=== PATIENT | male | born 1965 | race Caucasian/White ===

== ENCOUNTER 2016-06-12 09:14 | Day surgery (SDC) | payer BC ==
[~2016-06-12 09:14] MED LIST: LACTATED RINGERS 1,000 ML IV SCH
[2016-06-12 10:07] VITALS: TEMP 98.1
[2016-06-12] MEDS ORDERED: LIDOCAINE 1% 20 ML VIAL (10MG/ML) FOR IV START INTRADERMA ONE (10:10)
[2016-06-12] MEDS ORDERED: LACTATED RINGERS 1,000 ML IV ONE (10:10)
[2016-06-12] MEDS ORDERED: PROPOFOL 10 MG/ML 20 ML VIAL IV ONE (10:16)
[2016-06-12] MEDS ORDERED: fentaNYL (PF) 50 MCG/ML 2 ML AMP ONE (10:16)
[2016-06-12] MEDS ORDERED: MIDAZOLAM 2 MG/2 ML VIAL ONE (10:16)
--- NOTE | 2016-06-12 10:42 | P.PCN ---
Date of Procedure: 06/12/16 Procedure(s) Performed: Procedure: Colonoscopy and biopsy and polypectomy. Preoperative diagnosis: Screening for neoplasia. Postoperative diagnosis: 1. Sigmoid diverticulosis with no evidence of acute diverticulitis or strictures. 2. Small/diminutive polyps around the splenic flexure and in the rectum, one was biopsied and the other was snared, but no large polyps or cancer. Preparation: HalfLytely prep. Sedation: Was provided by anesthesia. Brief clinical history: The patient is a 50-year-old male referred for this evaluation for screening for neoplasia age being his risk factor. He has no abdominal complaints, bleeding or anemia. No family history of colon cancer. This would be his first colonoscopy. Procedure: With the patient on his left lateral decubitus position and after informed consent and adequate sedation, the perianal area was inspected and it did not show any fissures or fistulas. There were no masses felt on digital rectal examination. The Olympus CFQ 160L video colonoscope was then inserted in the rectum in the usual fashion and advanced to the cecum. There was a diminutive polyp around the splenic flexure which I biopsied and there was a small polyp in the rectum close to the rectosigmoid junction which I snared and retrieved by suction, but there were no large polyps or cancer. There was an occasional diverticular orifice seen in the sigmoid with no evidence of acute diverticulitis or strictures. I retroflexed endoscope in the rectum before the endoscope was withdrawn. The patient tolerated the procedure well. Plan: The patient was reassured. Discussed dietary measures. He will follow up with you as planned and I recommended a repeat exam in 5 years.
[2016-06-12 10:50] VITALS: PULSE 92; RESP 18
[2016-06-12 10:51] VITALS: BP 138/99
== END 2016-06-12 11:18 | disposition home or self-care (01) ==
LOC: ORWHC2ENDO 09:14
DX: Z12.11 Encounter for screening for malignant neoplasm of colon (principal); D12.3 Benign neoplasm of transverse colon; K62.1 Rectal polyp; K57.30 Diverticulosis of large intestine without perforation or abscess without bleeding; K21.9 Gastro-esophageal reflux disease without esophagitis; Z79.899 Other long term (current) drug therapy
CPT/HCPCS: 88305; 45380; 45385; J2250; J3010; J2704; 99153

== ENCOUNTER 2017-10-20 01:28 | Inpatient (IN) | payer BC ==
--- NOTE | 2017-10-20 01:39 | ED ---
Chest Pain HPI - General Chief Complaint: Chest Pain Stated Complaint: chest pain Time Seen by Provider: 10/20/17 01:33 Source: patient, family Mode of arrival: ambulatory Limitations: no limitations - History of Present Illness Initial Comments: This patient is a 52-year-old man who presents with complaint of substernal chest pain that woke him from sleep. Patient states that the pain is constant, severe, aching. It does radiate up towards his neck. The patient has not noted worsening or relieving symptoms. He is having associated nausea. MD Complaint: chest pain Onset/Timin -: minutes(s) Onset: awoke with symptoms Pain Location: substernal Pain Radiation: back Severity: severe Quality: dull Consistency: constant Improves With: nothing Worsens With: nothing Anginal Symptoms: nausea Treatments Prior to Arrival: none - Related Data Home Medications Medication Instructions Recorded Confirmed Cholecalciferol [Vitamin D3] 5,000 unit PO DAILY 10/20/17 10/20/17 Allergies Allergy/AdvReac Type Severity Reaction Status Date / Time No Known Allergies Allergy Verified 10/20/17 08:37 Review of Systems ROS Statement: Those systems with pertinent positive or pertinent negative responses have been documented in the HPI. ROS Other: All systems not noted in ROS Statement are negative. Constitutional: Denies: fever, chills Respiratory: Denies: cough, dyspnea Cardiovascular: Reports: chest pain. Denies: palpitations, orthopnea, edema, syncope Gastrointestinal: Reports: nausea. Denies: abdominal pain, vomiting, diarrhea Genitourinary: Denies: dysuria, hematuria Musculoskeletal: Denies: back pain Skin: Denies: rash Neurological: Denies: headache EKG Findings - EKG Results: EKG: interpreted by MOISES, sinus rhythm (Rate 87 bpm), normal axis, normal QRS - Blocks, [place], Hypertrophy, ST Abn: Repolarization changes or abnormalities: nonspecific abnormality, ST segment, and/or T wave Past Medical History Past Medical History: GERD/Reflux History of Any Multi-Drug Resistant Organisms: None Reported Past Surgical History: Hernia Repair, Orthopedic Surgery Additional Past Surgical History / Comment(s): ORIF LEFT MID FINGER. MANDIBULAR RECONSTRUCTION. Past Anesthesia/Blood Transfusion Reactions: Motion Sickness Past Psychological History: No Psychological Hx Reported Smoking Status: Never smoker Past Alcohol Use History: Occasional Past Drug Use History: Marijuana - Past Family History Father Family Medical History: Coronary Artery Disease (CAD), Myocardial Infarction ([place] ) General Exam Limitations: no limitations General appearance: alert, in distress Head exam: Present: atraumatic, normocephalic Eye exam: Present: normal appearance. Absent: scleral icterus, conjunctival injection ENT exam: Present: normal oropharynx Respiratory exam: Present: normal lung sounds bilaterally. Absent: respiratory distress, wheezes, rales, rhonchi, stridor, chest wall tenderness Cardiovascular Exam: Present: regular rate, normal rhythm, normal heart sounds. Absent: systolic murmur, diastolic murmur, rubs, gallop GI/Abdominal exam: Present: soft. Absent: distended, tenderness, guarding, rebound, rigid, mass Extremities exam: Present: normal inspection, normal capillary refill. Absent: pedal edema, calf tenderness Back exam: Present: normal inspection. Absent: CVA tenderness (R), CVA tenderness (L) Neurological exam: Present: alert Skin exam: Present: warm, dry, intact, normal color. Absent: rash Course Vital Signs 10/20/17 10/20/17 10/20/17 01:29 02:10 02:15 Temperature 98 F Pulse Rate 95 100 106 H Respiratory 20 20 20 Rate Blood Pressure 141/94 170/116 155/98 O2 Sat by Pulse 98 99 95 Oximetry 10/20/17 10/20/17 10/20/17 02:20 02:34 02:36 Temperature Pulse Rate 86 84 Respiratory 20 18 Rate Blood Pressure 89/58 85/59 104/77 O2 Sat by Pulse 98 94 L Oximetry 10/20/17 10/20/17 10/20/17 02:58 03:06 03:20 Temperature 98.0 F Pulse Rate 91 82 95 Respiratory 18 18 18 Rate Blood Pressure 143/93 136/96 129/98 O2 Sat by Pulse 96 97 98 Oximetry 10/20/17 10/20/17 10/20/17 03:25 03:32 03:42 Temperature Pulse Rate 93 98 96 Respiratory 18 18 18 Rate Blood Pressure 133/90 133/50 135/83 O2 Sat by Pulse 96 97 97 Oximetry - Reevaluation(s) Reevaluation #1: 10/20/17 02:51 Patient's chest pain continued, and the repeat ECG does show changes concerning for acute coronary syndrome. There is some ST elevation now in lead III. this is less than 1 mm and there is no not another contiguous lead. Clinically, the patient has had some improvement. He states there is no longer any pain in the chest, though he does continue to have the discomfort that radiates to the neck. I have discussed the patient's case with Dr. Mujica, the pattern setter on-call. Patient being started on heparin and nitroglycerin IV. 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 Critical Care Time Critical Care Time: Yes (40 minutes) Disposition Clinical Impression: Acute coronary syndrome Disposition: ADMITTED IP TO THIS HOSP Condition: Serious
[2017-10-20] MEDS ORDERED: ASPIRIN 81 MG PO STA (02:03)
[2017-10-20] MEDS ORDERED: MORPHINE SULFATE 4 MG/ML SYRINGE IV STA (02:03)
[2017-10-20] MEDS ORDERED: ONDANSETRON 4 MG/2 ML VIAL IVP STA (02:08)
[2017-10-20] MEDS: NITROGLYCERIN SL TABS 0.4 MG TAB SUBLINGUAL STA ×2 (02:11→02:16)
[2017-10-20 02:13] LABS: Basophils % (A) 0 %; Eosinophils # (A) 0.2 k/uL (0-0.7); Eosinophils % (A) 2 %; HCT 44.1 % (39.0-53.0); HGB 15.2 gm/dL (13.0-17.5); Lymphocytes # (A) 3.2 k/uL (1.0-4.8); Lymphocytes % (A) 37 %; MCH 28.2 pg (25.0-35.0); MCHC 34.6 g/dL (31.0-37.0); MCV 81.7 fL (80.0-100.0); Monocytes # (A) 0.8 k/uL (0-1.0); Monocytes % (A) 9 %; Neutrophils # (A) 4.2 k/uL (1.3-7.7); Neutrophils % (A) 48 %; Platelet Count 276 k/uL (150-450); RDW 13.4 % (11.5-15.5); WBC 8.7 k/uL (3.8-10.6)
[2017-10-20 02:22] LABS: Albumin 4.1 g/dL (3.5-5.0); Calcium 9.1 mg/dL (8.4-10.2); Magnesium 2.1 mg/dL (1.6-2.3); Potassium 3.9 mmol/L (3.5-5.1); Total Bilirubin 0.4 mg/dL (0.2-1.3); Total Protein 7.1 g/dL (6.3-8.2)
[2017-10-20 02:33] LABS: D-Dimer 0.43 mg/L FEU (<0.60); Prothrombin Time 9.7 sec (9.0-12.0)
[2017-10-20] MEDS ORDERED: SODIUM CHLORIDE 0.9% 1,000 ML IV ONE ×3 (02:33→04:11)
[2017-10-20] MEDS ORDERED: HEPARIN SODIUM,PORCINE 5,000 UNIT/ML 1 ML VIAL IV ONE (02:39)
[2017-10-20] MEDS ORDERED: HEPARIN SODIUM,PORCINE 5,000 UNIT/ML 1 ML VIAL IV PRN (02:39)
--- NOTE | 2017-10-20 02:40 | XR ---
EXAMINATION TYPE: XR chest 1V portable DATE OF EXAM: 10/20/2017 COMPARISON: NONE HISTORY: Chest pain TECHNIQUE: Single frontal view of the chest is obtained. FINDINGS: There is no heart failure nor confluent pneumonic infiltrate. Costophrenic angles are gilda r. There are chest leads. Bony thorax is intact. IMPRESSION: Normal chest
[2017-10-20 02:42] LABS: Creatine Kinase MB 3.3 ng/mL (0.0-2.4); Troponin I 0.378 ng/mL (0.000-0.034)
[2017-10-20 02:43] LABS: Partial Thromboplastin Time 21.1 sec (22.0-30.0)
[2017-10-20] MEDS ORDERED: HEPARIN SOD,PORK IN 0.45% NACL 25,000 UNIT in 0.45% NACL 1 500ML.BAG IV SCH (02:45)
[2017-10-20] MEDS ORDERED: NITROGLYCERIN SL TABS 0.4 MG TAB SUBLINGUAL PRN ×2 (02:54→05:03)
[2017-10-20] MEDS ORDERED: NITROGLYCERIN-D5W PMX 50 MG in DEXTROSE/WATER 1 250ML.BAG IV ONE (02:58)
[2017-10-20] MEDS ORDERED: DEXTROSE IV SCH (02:59)
[2017-10-20] MEDS ORDERED: HEPARIN SOD PORK IV SCH (02:59)
[2017-10-20] MEDS ORDERED: WATER IV SCH (02:59)
[2017-10-20] MEDS ORDERED: NACL IV SCH (02:59)
[2017-10-20] MEDS ORDERED: HEPARIN SODIUM,PORCINE/D5W PMX 25,000 UNIT in DEXTROSE/WATER 1 500ML.BAG IV SCH (03:00)
[2017-10-20] MEDS ORDERED: ATORVASTATIN 80 MG TAB PO STA (03:27)
[2017-10-20] MEDS ORDERED: MIDAZOLAM 2 MG/2 ML VIAL ONE (04:09)
[2017-10-20] MEDS ORDERED: fentaNYL (PF) 50 MCG/ML 2 ML AMP ONE (04:09)
[2017-10-20] MEDS ORDERED: LIDOCAINE 2% INJ 20 MG/ML SQ ONE ×2 (04:12→04:13)
[2017-10-20] MEDS ORDERED: MIDAZOLAM 2 MG/2 ML VIAL IVP ONE (04:14)
[2017-10-20] MEDS: fentaNYL (PF) 50 MCG/ML 2 ML AMP IVP ONE ×2 (04:14→04:33)
[2017-10-20] MEDS ORDERED: BIVALIRUDIN BOLUS 250 MG/50 ML IV ONE (04:23)
[2017-10-20] MEDS ORDERED: BIVALIRUDIN 250 MG in SODIUM CHLORIDE 0.9% 50 ML IV ONE (04:24)
[2017-10-20] MEDS ORDERED: CLOPIDOGREL 75 MG TAB PO ONE (04:25)
[2017-10-20] MEDS ORDERED: CLOPIDOGREL 75 MG TAB ONE ×2 (04:25)
[2017-10-20] MEDS: NITROGLYCERIN 1000MCG/10ML SYRINGE INTRACORON ONE ×2 (04:31→04:38)
[2017-10-20] MEDS ORDERED: niCARdipine 25 MG/10 ML VIAL ONE (04:36)
[2017-10-20] MEDS ORDERED: niCARdipine Syringe (1,000 mcg/10 mL) INTRACORON ONE (04:38)
[2017-10-20] MEDS ORDERED: IOPAMIDOL-370 125ML BTL INJ ONE (04:41)
--- NOTE | 2017-10-20 05:01 | P.CRDCN ---
History of Present Illness Consult date: 10/20/17 Chief complaint: chest discomfort History of present illness: this is a pleasant 52-year-old gentleman who presented to the emergency room complaining of chest discomfort. He was in his usual state of health and was completely asymptomatic until last night when he woke up from sleep around 1:00 after midnight complaining of chest discomfort. The discomfort is substernal, as a tightness/pressure on the chest, and it was radiating to his neck as well as to his jaw. The initial EKG when he presented to the hospital showed sinus rhythm with ischemic changes inferiorly. Because of the ongoing chest discomfort the patient was brought to the cardiac laborer general. He underwent an emergent heart catheterization and that revealed mild disease involving the RCA , normal left main, totally and acutely occluded large first obtuse marginal branch of the left circumflex, and mild disease involving the LAD. The patient underwent successful stenting of the first obtuse marginal branch of the left circumflex with a good angiographic results and using a drug-eluting stent. By the end of the procedure the patient was completely pain-free. In terms of past medical history he does have high blood pressure. He stated that his pressure fluctuates at home but he is not on any blood pressure medications.he states that there is no dyslipidemia and no diabetes. The patient does not smoke and does not drink alcohol. Past Medical History Past Medical History: GERD/Reflux History of Any Multi-Drug Resistant Organisms: None Reported Past Surgical History: Hernia Repair, Orthopedic Surgery Additional Past Surgical History / Comment(s): ORIF LEFT MID FINGER. MANDIBULAR RECONSTRUCTION. Past Anesthesia/Blood Transfusion Reactions: Motion Sickness Past Psychological History: No Psychological Hx Reported Smoking Status: Never smoker Past Alcohol Use History: Occasional Past Drug Use History: Marijuana Medications and Allergies Home Medications Medication Instructions Recorded Confirmed Type No Known Home Medications [No 10/20/17 10/20/17 History Known Home Medications] Allergies Allergy/AdvReac Type Severity Reaction Status Date / Time No Known Allergies Allergy Verified 10/20/17 01:32 Physical Exam Vitals: Vital Signs Temp Pulse Resp BP Pulse Ox 10/20/17 03:42 96 18 135/83 97 10/20/17 03:32 98 18 133/50 97 10/20/17 03:25 93 18 133/90 96 10/20/17 03:20 98.0 F 95 18 129/98 98 10/20/17 03:06 82 18 136/96 97 10/20/17 02:58 91 18 143/93 96 10/20/17 02:36 84 18 104/77 94 L 10/20/17 02:34 85/59 10/20/17 02:20 86 20 89/58 98 10/20/17 02:15 106 H 20 155/98 95 10/20/17 02:10 100 20 170/116 99 10/20/17 01:29 98 F 95 20 141/94 98 Intake and Output 10/19/17 10/19/17 10/20/17 14:59 22:59 06:59 Intake Total 501.1 Balance 501.1 Intake: IV 500 Intake, IV Titration 1.1 Amount Nitroglycerin-D5w Pmx 50 1.1 mg In Dextrose/Water 1 250ml.bag @ 5 MCG/MIN 1.5 mls/hr IV .Q24H ONE Rx#: [id number] Other: Weight 86.183 kg - Constitutional General appearance: no acute distress - Respiratory Respiratory: bilateral: CTA - Cardiovascular Rhythm: regular Heart sounds: normal: S1, S2 Results 10/20/17 01:39 10/20/17 01:39 Cardiac Enzymes 10/20/17 10/20/17 Range/Units 01:39 01:39 AST 31 (17-59) U/L CK-MB (CK-2) 3.3 H* (0.0-2.4) ng/mL Troponin I 0.378 H* (0.000-0.034) ng/mL Coagulation 10/20/17 Range/Units 01:39 PT 9.7 (9.0-12.0) sec APTT 21.1 L (22.0-30.0) sec CBC 10/20/17 Range/Units 01:39 WBC 8.7 (3.8-10.6) k/uL RBC 5.40 (4.30-5.90) m/uL Hgb 15.2 (13.0-17.5) gm/dL Hct 44.1 (39.0-53.0) % Plt Count 276 (150-450) k/uL Comprehensive Metabolic Panel 10/20/17 Range/Units 01:39 Sodium 141 (137-145) mmol/L Potassium 3.9 (3.5-5.1) mmol/L Chloride 102 (98-107) mmol/L Carbon Dioxide 24 (22-30) mmol/L BUN 17 (9-20) mg/dL Creatinine 1.10 (0.66-1.25) mg/dL Glucose 107 H (74-99) mg/dL Calcium 9.1 (8.4-10.2) mg/dL AST 31 (17-59) U/L ALT 54 (21-72) U/L Alkaline Phosphatase 66 (38-126) U/L Total Protein 7.1 (6.3-8.2) g/dL Albumin 4.1 (3.5-5.0) g/dL Current Medications Generic Name Dose Route Start Last Admin Trade Name Freq PRN Reason Stop Dose Admin Aspirin 325 mg 10/21/17 09:00 Aspirin PO DAILY ELIANA Heparin Sodium (Porcine) 0 unit 10/20/17 02:39 Heparin IV PER PROTOCOL PRN Low PTT Protocol Nitroglycerin/Dextrose 50 mg/ 250 mls @ 1.5 mls/hr 10/20/17 02:58 10/20/17 03 :42 IV Solution IV 10/21/17 02:57 15 mcg/min .Q24H ONE 4.5 mls/hr Protocol Titration 5 MCG/MIN Heparin Sodium/Dextrose 25,000 500 mls @ 20.68 mls/hr 10/20/17 03:00 03:28 unit/ IV Solution IV 11.6 units/kg/hr .Q24H ELIANA 20 mls/hr Protocol Administration 12 UNITS/KG/HR Nitroglycerin 0.4 mg 10/20/17 02:54 Nitrostat SUBLINGUAL Q5M PRN Chest Pain Intake and Output 10/19/17 10/19/17 10/20/17 14:59 22:59 06:59 Intake Total 501.1 Balance 501.1 Intake: IV 500 Intake, IV Titration 1.1 Amount Nitroglycerin-D5w Pmx 50 1.1 mg In Dextrose/Water 1 250ml.bag @ 5 MCG/MIN 1.5 mls/hr IV .Q24H ONE Rx#: [id number] Other: Weight 86.183 kg Patient Weight 10/20/17 06:59 Weight 86.183 kg 10/20/17 01:39 10/20/17 01:39 Assessment and Plan Assessment: assessment #1 acute coronary syndrome. The patient is status post PCI of the left circumflex. #2 mild nonobstructive coronary artery disease involving the RCA and LAD #3 hypertension not on any medication at home Plan #1 dual antiplatelet therapy #2 high intensity statin #3 obtain an echocardiogram was Doppler to evaluate the LV function #4 follow-up with the patient. Thank you for allowing us participate in his care and we will continue following up with him
[2017-10-20] MEDS ORDERED: ATROPINE SULFATE 0.1 MG/ML 10ML SYRINGE IV PRN (05:03)
[2017-10-20] MEDS ORDERED: RX INFO: IV CONTRAST WAS GIVEN 1 EACH MISC MISCELLANE PRN (05:03)
[2017-10-20] MEDS ORDERED: MAG HYDROX/AL HYDROX/SIMETH 30 ML CUP PO PRN (05:03)
[2017-10-20] MEDS ORDERED: ZOLPIDEM 5 MG TAB PO PRN (05:03)
[2017-10-20] MEDS ORDERED: SODIUM CHLORIDE 0.9% 1,000 ML IV SCH (05:15)
[2017-10-20 05:18] LABS: Glucose,Whole Blood 141 mg/dL (75-99)
[2017-10-20 06:51] VITALS: BMI 26.4
--- NOTE | 2017-10-20 07:55 | CC ---
CARDIAC CATHETERIZATION REPORT DATE OF SERVICE: October 20, 2017 PERFORMING PHYSICIAN: Darwin Mujica MD, linoleum floor layer. PROCEDURE PERFORMED: 1. Selective right and left coronary angiogram. 2. Left heart catheterization. 3. Successful stenting of the first obtuse marginal branch of left circumflex using 2.75 x 28 mm Xience BRIGIDA with good angiographic results. INDICATION: This is a pleasant 52-year-old gentleman who presented to the hospital with chest discomfort and mildly abnormal troponin. He continues to have ongoing chest discomfort as well as throat and jaw discomfort. Because of that an emergent heart catheterization was recommended. APPROACH: Right common femoral artery. COMPLICATION: None. LEVEL OF SEDATION: Moderate with sedation length of 35 minutes. PROCEDURE DESCRIPTION: After obtaining an informed consent, the patient was brought to cardiac laboratory chief. The right common femoral artery was cannulated using micropuncture technique and a micropuncture wire passed easily then I placed a 6-Niuean sheath in the right common femoral artery. Subsequently I did selective right and left coronary angiogram using JR4 and JL4 catheters. After that, I did perform angioplasty of the left circumflex please see a separate paragraph for that. Left heart catheterization was performed using 6-Niuean pigtail catheter. The procedure was completed without any complication. The groin was closed using the Perclose device. SELECTIVE CORONARY ANGIOGRAM: 1. The right coronary artery is a large caliber vessel and it is a dominant vessel. The RCA has mild disease in the midportion. It is a tortuous RCA. It is a dominant vessel. Distally it also does have mild disease only and bifurcates into PDA and PLV branches, both are angiographically normal. 2. The left main is angiographically normal. It bifurcates into the circumflex and left anterior descending artery. 3. The left circumflex is a large caliber vessel. It is a nondominant vessel. The proximal circ appeared to be angiographically normal. The mid circ gives rise into a large OM branch which is occluded in the proximal portion and the circ continued after that as a small-caliber vessel in the AV groove. 4. The LAD: The proximal LAD appeared to have mild disease only. It gives rise into the first diagonal branch which is a large caliber vessel with intermediate disease in the ostium. The mid LAD and distal LAD are angiographically normal. HEMODYNAMICS: The left ventricular end-diastolic pressure was 23 mmHg and no gradient was identified across the aortic valve. PCI OF THE LEFT CIRCUMFLEX: Anticoagulation was initiated using Angiomax. Subsequently I did engage the left main using JL4 guiding catheter. A whisper wire was used to cross the acute total occlusion of the first obtuse marginal branch of the left circumflex. Subsequently I did balloon angioplasty using 2.5 x 12 x 15 mm balloon before I deployed 2.75 x 28 mm Xience BRIGIDA where the stent was positioned under fluoroscopy guidance and deployed under its nominal pressure. The following angiogram showed good angiographic results without perforation and without dissection with SARA-3 flow. I did give the patient nitroglycerin IC as well as nicardipine IC. The procedure was completed without any complication. I did close the right groin using the Perclose device. CONCLUSION: 1. Acute total occlusion of the first obtuse marginal branch of the circumflex, which was which was successfully stented with good angiographic results. 2. Mild disease involving the RCA. 3. Mild disease involving the left anterior descending artery. 4. Normal left main coronary artery. 5. Elevated left ventricular end-diastolic pressure. POSTPROCEDURE MANAGEMENT: 1. Dual anti-platelet therapy along with high-intensity statin. 2. An echocardiogram to evaluate the LV function. 3. ICU admission. 4. Follow up with the patient. MMODL / IJN: [id number] /
--- NOTE | 2017-10-20 07:55 | LTR ---
October 20, [address] Cabrera: Mr. Burt Dee presented to the emergency room at [facility] with chest discomfort. He underwent a heart catheterization and was found to have acute total occlusion of the first obtuse marginal branch of the left circumflex, which was stented successfully with good angiographic results. Thank you for allowing us to participate in his care and please do not hesitate to call if you have any questions or concerns. MMODL / IJN: [id number] /
[2017-10-20] MEDS ORDERED: ASPIRIN 325 MG TAB PO SCH (09:00)
[2017-10-20 09:22] LABS: Troponin I 17.9 ng/mL (0.000-0.034)
[2017-10-20] MEDS: METOPROLOL TARTRATE 25 MG TAB PO SCH ×2 (09:58→21:14)
[2017-10-20] MEDS: LISINOPRIL 2.5 MG TAB PO SCH (09:58)
--- NOTE | 2017-10-20 10:47 | P.PN ---
Subjective Progress Note Date: 10/20/17 This is a 52-year-old gentleman with a strong family history of ischemic heart disease and possible mild hypercholesterolemia, who was admitted last night with the with chest pain and evidence of for non-ST elevation myocardial infarction. Patient had stent placement of circumflex. Patient is feeling better. Denies any chest pain or shortness of breath. His groin is soft. His having occasional skipping of the heart beats in the form of PVCs. His troponin and CPK went high, most probably from early reperfusion. Echo cardiogram was done. We'll increase his activity. Possible transfer to telemetry later today Objective - Vital Signs Vital signs: Vital Signs Temp 98.0 F 10/20/17 03:20 Pulse 91 10/20/17 07:00 Resp 18 10/20/17 07:00 BP 107/69 10/20/17 07:00 Pulse Ox 97 10/20/17 07:00 Intake & Output 10/19/17 10/20/17 10/20/17 18:59 06:59 18:59 Intake Total 651.1 100 Output Total 450 Balance 201.1 100 Weight 86 kg Intake: IV 650 100 Sodium Chloride 0.9% 1, 100 100 000 ml @ 100 mls/hr IV . Q10H [facility] Rx#:[id number] Intake, IV Titration 1.1 Amount Nitroglycerin-D5w Pmx 50 1.1 mg In Dextrose/Water 1 250ml.bag @ 5 MCG/MIN 1.5 mls/hr IV .Q24H ONE Rx#: [id number] Output: Urine 450 - Exam GENERAL EXAM: Patient is alert and oriented and doesn't appear to be in any acute distress HEENT: Normocephalic. Normal reaction of pupils, equal size, normal range of extraocular motion. No erythema or exudates in the throat. NECK: No masses, no nuchal rigidity. CHEST: No chest wall deformity. LUNGS: Equal air entry with no crackles or wheeze. HEART: S1 and S2 normal with no audible mumurs or gallops. Regular rhythm, femorals equal on both sides.. ABDOMEN: No hepatosplenomegaly, normal bowel sounds, no guarding or rigidity. SKIN: No rashes CENTRAL NERVOUS SYSTEM: No focal deficits. EXTREMITIES: No cyanosis, clubbing or edema. - Labs CBC & Chem 7: 10/20/17 01:39 10/20/17 01:39 Labs: Abnormal Lab Results - Last 24 Hours (Table) 10/20/17 10/20/17 10/20/17 Range/Units 01:39 01:39 01:39 APTT 21.1 L (22.0-30.0) sec Glucose 107 H (74-99) mg/dL POC Glucose (mg/dL) (75-99) mg/dL Total Creatine Kinase 232 H (55-170) U/L CK-MB (CK-2) 3.3 H* (0.0-2.4) ng/mL Troponin I 0.378 H* (0.000-0.034) ng/mL 10/20/17 10/20/17 Range/Units 05:15 08:26 APTT (22.0-30.0) sec Glucose (74-99) mg/dL POC Glucose (mg/dL) 141 H (75-99) mg/dL Total Creatine Kinase 1226 H (55-170) U/L CK-MB (CK-2) 117.0 H* (0.0-2.4) ng/mL Troponin I 17.900 H* (0.000-0.034) ng/mL Assessment and Plan (1) Hyperlipidemia Current Visit: Yes Status: Acute Code(s): E78.5 - HYPERLIPIDEMIA, UNSPECIFIED SNOMED Code(s): 49954274 (2) Acute coronary syndrome Current Visit: Yes Status: Acute Code(s): I24.9 - ACUTE ISCHEMIC HEART DISEASE, UNSPECIFIED SNOMED Code(s): 614087439 (3) Non-ST elevation [place] (NSTEMI) Current Visit: Yes Status: Acute Code(s): I21.4 - NON-ST ELEVATION (NSTEMI) MYOCARDIAL INFARCTION SNOMED Code(s): 732415412 Plan: Patient is clinically stable. Continue with KESHIA inhibitor, beta naveen, statin and aspirin and Brillinta. Transfer to telemetry
--- NOTE | 2017-10-20 12:23 | ECHOF ---
Referral Reason:ACS MEASUREMENTS -------- HEIGHT: 162.6 cm WEIGHT: 86.2 kg BP: 101/61 IVSd: 1.2 cm (0.6 - 1.1) LVIDd: 3.9 cm (3.9 - 5.3) LVPWd: 1.4 cm (0.6 - 1.1) IVSs: 1.7 cm LVIDs: 3.1 cm LVPWs: 1.4 cm LA Diam: 4.0 cm (2.7 - 3.8) LAESV Index (A-L): 36.51 ml/m Ao Diam: 3.2 cm (2.0 - 3.7) AV Cusp: 1.9 cm (1.5 - 2.6) LA Diam: 4.1 cm (2.7 - 3.8) MV EXCURSION: 17.701 mm (> 18.000) MV EF SLOPE: 66 mm/s (70 - 150) EPSS: 0.3 cm MV E Nasir: 0.66 m/s MV DecT: 157 ms MV A Nasir: 0.54 m/s MV E/A Ratio: 1.24 RAP: 5.00 mmHg RVSP: 16.50 mmHg FINDINGS -------- Sinus rhythm. This was a technically adequate study. The left ventricular size is normal. There is mild concentric left ventricular hypertrophy. Overa ll left ventricular systolic function is low-normal with, an EF between 50 - 55 %. Basal lateral LV wall motion is hypokinetic. Basal inferior LV wall motion is hypokinetic. The right ventricle is normal in size. LA is moderately dilated 34-39 ml/m2 The right atrial size is normal. Aortic valve is trileaflet and is mildly thickened. The mitral valve is normal. Mild mitral regurgitation is present. Mild tricuspid regurgitation present. There is no evidence of pulmonary hypertension. The right v entricular systolic pressure, as measured by Doppler, is 16.50mmHg. There is no pulmonic regurgitation present. The aortic root size is normal. There is no pericardial effusion. CONCLUSIONS -------- 1. Sinus rhythm. 2. This was a technically adequate study. 3. The left ventricular size is normal. 4. There is mild concentric left ventricular hypertrophy. 5. Overall left ventricular systolic function is low-normal with, an EF between 50 - 55 %. 6. Basal lateral LV wall motion is hypokinetic. 7. Basal inferior LV wall motion is hypokinetic. 8. LA is moderately dilated 34-39 ml/m2 9. Aortic valve is trileaflet and is mildly thickened. 10. Mild mitral regurgitation is present. 11. Mild tricuspid regurgitation present. 12. There is no evidence of pulmonary hypertension. 13. There is no pulmonic regurgitation present. 14. The aortic root size is normal. 15. There is no pericardial effusion. BIODIESEL PRODUCTION TECHNICIAN: Vale Bliss RDCS
[2017-10-20 14:37] LABS: Troponin I 44.2 ng/mL (0.000-0.034)
--- NOTE | 2017-10-20 18:37 | HP ---
HISTORY AND PHYSICAL DATE OF SERVICE: October 20, 2017. PRESENTING COMPLAINT: Throat pain. HISTORY OF PRESENTING COMPLAINT: A very pleasant 52-year-old patient of Dr. Cabrera whose chronic stable medical conditions include GERD, insomnia, and obstructive sleep apnea. The patient is rather active and goes to the gym, works on a bike, does weightlifting. It was his birthday yesterday. Went out with friends. About 1 o'clock in the morning, he felt a sore throat and subsequently started having more pain in the throat area and going down the chest and back up. The patient became dizzy. Started feeling nausea, nauseated. MMODL / IJN: [id number] /
[2017-10-20] MEDS: ATORVASTATIN 80 MG TAB PO SCH (21:14)
[2017-10-20] MEDS: FAMOTIDINE 20 MG TAB PO SCH (21:14)
[2017-10-21 04:39] LABS: Basophils % (A) 0 %; Eosinophils # (A) 0.2 k/uL (0-0.7); Eosinophils % (A) 2 %; HCT 42.1 % (39.0-53.0); HGB 13.6 gm/dL (13.0-17.5); Lymphocytes # (A) 2.2 k/uL (1.0-4.8); Lymphocytes % (A) 21 %; MCH 27.1 pg (25.0-35.0); MCHC 32.3 g/dL (31.0-37.0); MCV 83.7 fL (80.0-100.0); Mean Platelet Volume 7.5; Monocytes # (A) 0.9 k/uL (0-1.0); Monocytes % (A) 8 %; Neutrophils % (A) 67 %; Platelet Count 228 k/uL (150-450); RBC 5.02 m/uL (4.30-5.90); RDW 13.3 % (11.5-15.5); WBC 10.5 k/uL (3.8-10.6)
[2017-10-21 05:10] LABS: Anion Gap 8 mmol/L; Blood Urea Nitrogen 14 mg/dL (9-20); Calcium 8.3 mg/dL (8.4-10.2); Carbon Dioxide 26 mmol/L (22-30); Chloride 104 mmol/L (98-107); Cholesterol 173 mg/dL (<200); Glucose 100 mg/dL (74-99); HDL Cholesterol 36 mg/dL (40-60); LDL Cholesterol,Calculated 114 mg/dL (0-99); Magnesium 2.1 mg/dL (1.6-2.3); Phosphorus 2.9 mg/dL (2.5-4.5); Potassium 4.2 mmol/L (3.5-5.1); Sodium 138 mmol/L (137-145); Triglycerides 115 mg/dL (<150)
[2017-10-21] MEDS: ASPIRIN 325 MG TAB PO SCH (11:17)
[2017-10-21] MEDS: FAMOTIDINE 20 MG TAB PO SCH ×2 (11:18→21:06)
[2017-10-21] MEDS: METOPROLOL TARTRATE 25 MG TAB PO SCH ×3 (11:18→21:06)
[2017-10-21] MEDS: LISINOPRIL 2.5 MG TAB PO SCH (11:18)
[2017-10-21] MEDS: CLOPIDOGREL 75 MG TAB PO SCH (11:18)
[2017-10-21] MEDS: ATORVASTATIN 80 MG TAB PO SCH (21:06)
[2017-10-22 06:27] LABS: Basophils % (A) 0 %; Eosinophils # (A) 0.2 k/uL (0-0.7); Eosinophils % (A) 2 %; HCT 43.4 % (39.0-53.0); HGB 14.3 gm/dL (13.0-17.5); Lymphocytes # (A) 2.7 k/uL (1.0-4.8); Lymphocytes % (A) 28 %; MCH 28.1 pg (25.0-35.0); MCV 85.1 fL (80.0-100.0); Mean Platelet Volume 6.8; Monocytes # (A) 0.8 k/uL (0-1.0); Monocytes % (A) 8 %; Neutrophils # (A) 5.7 k/uL (1.3-7.7); Neutrophils % (A) 60 %; Platelet Count 199 k/uL (150-450); RDW 13.8 % (11.5-15.5); WBC 9.6 k/uL (3.8-10.6)
--- NOTE | 2017-10-22 06:33 | PN ---
PROGRESS NOTE DATE OF SERVICE: 10/21/2017 PRESENTING COMPLAINT: Chest pain. INTERVAL HISTORY: Patient is status post acute SD with coronary intervention up and about in the hallway. No chest pain or shortness of breath. Feeling well. REVIEW OF SYSTEMS: Review of systems done for constitutional, cardiovascular, GI, pulmonary; relevant findings as above. CURRENT MEDICATIONS: Current medications are reviewed. PHYSICAL EXAMINATION: On examination, temperature 97.7, pulse 95, respiratory 18, blood pressure 106/76, pulse ox 95% on room air. GENERAL APPEARANCE: Lying in bed, comfortable. EYES: Pupils equal. Conjunctivae normal. HENT: External appearance nose and ears normal. Oral cavity normal. NECK: JVD not raised. Mass not palpable. RESPIRATORY: Effort normal. Lungs are clear. CARDIOVASCULAR: First and second sounds normal. No edema. ABDOMEN: Soft, nontender. Liver and spleen not palpable. PSYCHIATRY: Alert and oriented x3. Mood and affect normal. INVESTIGATIONS: Troponins are noted. ASSESSMENT: 1. Acute non-ST elevation myocardial infarction with emergent stenting to the first obtuse marginal of the left circumflex. 2. Severe gastroesophageal reflux disease. PLAN: Continue current medication and treatment plan. Care was discussed with the patient. MMODL / IJN: [id number] /
[2017-10-22 06:34] LABS: Anion Gap 8 mmol/L; Blood Urea Nitrogen 19 mg/dL (9-20); Calcium 8.4 mg/dL (8.4-10.2); Carbon Dioxide 27 mmol/L (22-30); Chloride 104 mmol/L (98-107); Glucose 94 mg/dL (74-99); Phosphorus 3.2 mg/dL (2.5-4.5); Potassium 4.5 mmol/L (3.5-5.1); Sodium 139 mmol/L (137-145)
--- NOTE | 2017-10-22 06:36 | HP ---
HISTORY AND PHYSICAL DATE OF SERVICE: October 20, 2017 PRESENTING COMPLAINT: Throat pain. HISTORY OF PRESENTING COMPLAINT: This patient was seen by me on October 20, 2017, however, my H and P has not shown up. Hence, I am dictating again. This is a very pleasant 52-year-old patient of Dr. Cabrera whose chronic stable medical conditions include GERD, insomnia, obstructive sleep apnea. The patient is rather active and goes to the gym, works on a bike, does weightlifting. It was his birthday the prior evening, went out with friends. At 1 o'clock in the morning he felt a sore throat and subsequently started having more pain in his throat area going down the chest and back up. The patient became dizzy, starting feeling nausea. This episode continued to grow, felt a more disturbed and decided to come in for the same. The patient echocardiogram done showed wall motion abnormality and patient is taken to the cardiac catheterization lab by Dr. Mujica and patient has successful stenting to the 1st obtuse marginal branch of the left circumflex. I saw the patient in the ICU. Patient is resting comfortably. REVIEW OF SYSTEMS: Constitutional tired. HEENT none. Respiratory none. Cardiovascular as above. Gastrointestinal: Heartburn. Genitourinary none. Musculoskeletal none. Dermatological, hematologic, lymphatic none. Psychiatry none. Neurological none. PAST MEDICAL HISTORY: Of hernia repair and ORIF of the left middle finger. reconstruction. SOCIAL HISTORY: No smoking. Occasional marijuana. 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 . FAMILY HISTORY: Coronary artery disease. HOME MEDICATIONS: Vitamin D 5 5000 units a day. ALLERGIES: None. PHYSICAL EXAMINATION: Vital signs on presentation, temperature 98, pulse 95 respiratory rate 20, blood pressure 140/94, pulse ox 98%. GENERAL APPEARANCE: Average build, lying in bed. Comfortable. Eyes pupils equal. Conjunctivae normal. HEENT external appearance of nose and ears normal. Oral cavity normal. Neck JVD not raised. Mass not palpable. Respiratory effort normal. Lungs are clear. Cardiovascular 1st and 2nd sounds normal. No edema. ABDOMEN: Soft, nontender. Liver and spleen not palpable. Lymphatics: No lymph nodes palpable in neck or axillae. PSYCHIATRY: Alert and oriented x3. Mood and affect normal. INVESTIGATIONS: Admission labs: White count 8.7, hemoglobin 15.2 potassium 3.9 BUN creatinine is normal. Troponin 0.377 and 0.3. EKG admission EKG showed flipped T-waves in inferior leads. ASSESSMENT: 1. Acute non ST elevation myocardial infarction with emergent cardiac catheterization and stenting. 2. Chronic gastroesophageal reflux disease. PLAN: Patient's medications were reviewed. The patient is status post cardiac cath. The patient's medications include aspirin, Lipitor, Plavix. Care was discussed with the patient. The patient was put on Pepcid. The patient is seen by Dr. Mujica from Cardiology. Copy to Dr. Cabrera. VEE / TIMOTHYN: [id number] /
[2017-10-22] MEDS: CLOPIDOGREL 75 MG TAB PO SCH (10:33)
[2017-10-22] MEDS: METOPROLOL TARTRATE 25 MG TAB PO SCH ×3 (10:33→21:50)
[2017-10-22] MEDS: ASPIRIN 325 MG TAB PO SCH (10:33)
[2017-10-22] MEDS: FAMOTIDINE 20 MG TAB PO SCH ×2 (10:33→21:50)
--- NOTE | 2017-10-22 14:41 | P.PN ---
Subjective Progress Note Date: 10/22/17 Is a 52-year-old gentleman who presented to the hospital with a non-ST elevation myocardial infarction, he underwent angioplasty with stent placement of the circumflex. Echocardiogram with Doppler study was reviewed today which revealed a normal left ventricular systolic function. Hemodynamically he is stable. CBC is normal, sodium 139, potassium 4.5, BUN 19, creatinine 0.9. Objective - Vital Signs Vital signs: Vital Signs Temp 97.1 F L 10/22/17 12:00 Pulse 82 10/22/17 12:00 Resp 18 10/22/17 12:00 BP 137/83 10/22/17 12:00 Pulse Ox 96 10/22/17 12:00 Intake & Output 10/21/17 10/22/17 10/22/17 18:59 06:59 18:59 Intake Total 597 240 Output Total 300 Balance 297 240 Weight 88.7 kg Intake: Oral 597 240 Output: Urine 300 Other: Voiding Method Urinal Urinal # Voids 1 1 - Exam PHYSICAL EXAMINATION: HEENT: Head is atraumatic, normocephalic. Pupils equal, round. Neck is supple. There is no elevated jugular venous pressure. HEART EXAMINATION: Heart S1, S2 normal. No murmur or gallop heard. CHEST EXAMINATION: Lungs are clear to auscultation and precussion. No chest wall tenderness is noted on palpation or with deep breathing. ABDOMEN: Soft, nontender. Bowel sounds are heard. No organomegaly noted. EXTREMITIES: 2+ peripheral pulses with no evidence of peripheral edema and no calf tenderness noted. NEUROLOGIC patient is awake, alert and oriented -3. . - Labs CBC & Chem 7: 10/22/17 05:31 10/22/17 05:31 Assessment and Plan Plan: Assessment and plan #1 non-Q-wave myocardial infarction status post angioplasty and stenting of the circumflex artery #2 hyperlipidemia #3 family history of premature coronary artery disease Plan From cardiology's perspective, we will continue the patient's current medications. Plan on possible discharge home in 24 hours if stable. DNP note has been reviewed, I agree with a documented findings and plan of care. Patient was seen and examined.
--- NOTE | 2017-10-22 19:14 | PN ---
PROGRESS NOTE DATE OF SERVICE: 10/22/2017 PRESENTING COMPLAINT: Chest pain. INTERVAL HISTORY: Patient is status post acute GA with coronary intervention, up in part of the hallway, feeling well. No chest pain or short of breath. No nausea, vomiting, tolerating his diet. REVIEW OF SYSTEMS: Done for constitutional, cardiovascular, GI, pulmonary; relevant findings as above. CURRENT MEDICATIONS: Reviewed that include: 1. Aspirin. 2. Lipitor. 3. Plavix. 4. Lopressor. EXAMINATION: Temperature 97.1, pulse 62, respirations 18, blood pressure 137/83, pulse ox 96% on room air. GENERAL APPEARANCE: Lying in bed, comfortable. EYES: Pupils equal. Conjunctivae normal. HEENT: External appearance of nose and ears normal. Oral cavity normal. NECK: JVD not raised. Mass not palpable. RESPIRATORY: Effort normal. Lungs are clear. CARDIOVASCULAR: First and second sounds are normal. No edema. ABDOMEN: Soft, nontender. Liver, spleen not palpable. PSYCHIATRY: Alert and oriented x3. Mood and affect normal. INVESTIGATIONS: Potassium 4.5. ASSESSMENT: 1. Acute non ST elevation myocardial infarction with emergent stenting to the 1st obtuse marginal of the left circumflex. 2. Severe gastroesophageal reflux disease. 3. Hyperlipidemia with LDL being 114. PLAN: Continue current medication and treatment plan. The patient encouraged to ambulate. MMODL / IJN: [id number] /
[2017-10-22] MEDS: ATORVASTATIN 80 MG TAB PO SCH (21:50)
[2017-10-23 06:51] LABS: Basophils % (A) 0 %; Eosinophils # (A) 0.3 k/uL (0-0.7); Eosinophils % (A) 3 %; HCT 45.4 % (39.0-53.0); HGB 14.5 gm/dL (13.0-17.5); Lymphocytes # (A) 2.2 k/uL (1.0-4.8); Lymphocytes % (A) 25 %; MCH 27.3 pg (25.0-35.0); MCV 85.4 fL (80.0-100.0); Mean Platelet Volume 6.9; Monocytes # (A) 0.7 k/uL (0-1.0); Monocytes % (A) 8 %; Neutrophils # (A) 5.4 k/uL (1.3-7.7); Neutrophils % (A) 61 %; Platelet Count 212 k/uL (150-450); RBC 5.32 m/uL (4.30-5.90); RDW 13.4 % (11.5-15.5); WBC 8.7 k/uL (3.8-10.6)
[2017-10-23] MEDS: FAMOTIDINE 20 MG TAB PO SCH (07:56)
[2017-10-23] MEDS: CLOPIDOGREL 75 MG TAB PO SCH (07:56)
[2017-10-23] MEDS: ASPIRIN 325 MG TAB PO SCH (07:56)
[2017-10-23] MEDS: METOPROLOL TARTRATE 25 MG TAB PO SCH (07:57)
[2017-10-23 10:16] VITALS: RESP 18
[2017-10-23 12:51] VITALS: BP 131/84; PULSE 78; TEMP 96.6
--- NOTE | 2017-10-23 16:44 | P.PN ---
Subjective Progress Note Date: 10/23/17 This is a 52-year-old gentleman with a strong family history of ischemic heart disease and possible mild hypercholesterolemia, who was admitted last night with the with chest pain and evidence of for non-ST elevation myocardial infarction. Patient had stent placement of circumflex. Patient is feeling better. Denies any chest pain or shortness of breath. His groin is soft. His having occasional skipping of the heart beats in the form of PVCs. His troponin and CPK went high, most probably from early reperfusion. Echo cardiogram was done. We'll increase his activity. Possible transfer to telemetry later today . 10/23/2017: This patient is clinically stable. No complaints of chest pains or shortness of breath. His echo showed an ejection fraction of 50-55%. He is tolerating medications well. He could be discharged home. Follow-up with Dr. Kendall Objective - Vital Signs Vital signs: Vital Signs Temp 96.6 F L 10/23/17 12:00 Pulse 78 10/23/17 12:00 Resp 18 10/23/17 12:00 BP 131/84 10/23/17 12:00 Pulse Ox 97 10/23/17 12:00 Intake & Output 10/22/17 10/23/17 10/23/17 18:59 06:59 18:59 Intake Total 1320 360 Output Total 600 Balance 720 360 Weight 88.1 kg Intake: Oral 1320 360 Output: Urine 600 Other: Voiding Method Urinal Urinal # Voids 1 1 1 - Exam GENERAL EXAM: Patient is alert and oriented and doesn't appear to be in any acute distress HEENT: Normocephalic. Normal reaction of pupils, equal size, normal range of extraocular motion. No erythema or exudates in the throat. NECK: No masses, no nuchal rigidity. CHEST: No chest wall deformity. LUNGS: Equal air entry with no crackles or wheeze. HEART: S1 and S2 normal with no audible mumurs or gallops. Regular rhythm, femorals equal on both sides.. ABDOMEN: No hepatosplenomegaly, normal bowel sounds, no guarding or rigidity. SKIN: No rashes CENTRAL NERVOUS SYSTEM: No focal deficits. EXTREMITIES: No cyanosis, clubbing or edema. - Labs CBC & Chem 7: 10/23/17 05:35 10/22/17 05:31 Assessment and Plan (1) Hyperlipidemia Status: Acute Code(s): E78.5 - HYPERLIPIDEMIA, UNSPECIFIED SNOMED Code(s): 94987217 (2) Acute coronary syndrome Status: Acute Code(s): I24.9 - ACUTE ISCHEMIC HEART DISEASE, UNSPECIFIED SNOMED Code(s): 016575898 (3) Non-ST elevation GA (NSTEMI) Status: Acute Code(s): I21.4 - NON-ST ELEVATION (NSTEMI) MYOCARDIAL INFARCTION SNOMED Code(s): 154199967 Plan: Patient is stable. He could be discharged home on current medical therapy. Follow up with Dr. Kendall. Patient is advised to to avoid any heavy lifting, pushing or pulling.
--- NOTE | 2017-10-26 15:41 | CDI ---
Last Revision, May 2017 Documentation Clarification Form Date: 10/26/17 From: Steph Andrew Gregoria Miles, Shortage Worker Hours-8:30 am & 5 pm M-F Admit Date: 10/20/2017 2:54:00 AM Patient Name: Burt Dee Visit Number: [id number] Discharge Date: 10/23/17 ATTENTION: The Clinical Documentation Specialists (CDI) and [facility] Coding Staff appreciate your assistance in clarifying documentation. Please respond to the clarification below the line at the bottom and electronically sign. The CDI & [facility] Coding staff will review the response and follow-up if needed. Please note: Queries are made part of the Legal Health Record. If you have any questions, please contact the author of this message via ITS. Dr. Nolberto Chavis Echo documentation states: Mild mitral regurgitation and mild tricuspid regurgitation. Clinical significance of diagnostic testing and treatment CANNOT be assumed or coded without physician documentation of significance if any. Please clarify what abnormal laboratory signifies: Mild mitral and tricuspid regurgitation Abnormal Lab Value Unable to determine Other, please specify Please continue to document in your progress notes and discharge summary in order to capture severity of illness and risk of mortality. Include clinical findings that support your diagnosis. unable to determine MTDD
--- NOTE | 2017-10-28 22:19 | DS ---
DISCHARGE SUMMARY DATE OF ADMISSION: October 20, 2017. DATE OF DISCHARGE: October 23, 2017. FINAL DIAGNOSES: 1. Acute non-ST elevation myocardial infarction with emergent stenting to the 1st obtuse marginal of the left circumflex. 2. Severe gastroesophageal reflux disease. 3. Hyperlipidemia with LDL being 114. HOSPITAL COURSE: This patient presented with chest pain, ruled in for acute non ST elevation myocardial infarction, cardiac cath followed by intervention was carried out as above. 2D echocardiogram showed the EF preserved at 50-55% with multiple wall motion abnormalities. LDL came back at 114. By the time of discharge patient is up and about, tolerating a diet. No chest pain or short of breath. CONSULTATION: Dr. Mujica from Interventional Cardiology and Dr. Irvin from Cardiology. DISCHARGE MEDICATIONS: 1. Vitamin D3 5000 units p.o. daily. 2. Aspirin 81 mg p.o. daily. 3. Lipitor 80 mg p.o. q.h.s. 4. Plavix 75 mg p.o. daily. 5. Pepcid 20 mg p.o. b.i.d. 6. Lopressor 25 mg p.o. t.i.d. 7. Nitrostat 0.4 sublingual q.5 p.r.n. PHYSICAL EXAMINATION: Cardiovascular: 1st and second sounds normal. LUNGS: Clear. FOLLOWUP: Follow up with Dr. Law on November 04, 2017. Follow up with Dr. Cabrera in [address] Cabrera. MMODL / IJN: [id number] /
== END 2017-10-23 15:14 | disposition home or self-care (01) | DRG 247 ==
LOC: EC 01:28 → 6SEL 02:54 → 6ICU 03:26 → 6SEL 10-21 15:32
PROVIDERS: ADMIT Hospitalist; ATTEND Hospitalist
PROC: B211YZZ Fluoroscopy of Multiple Coronary Arteries using Other Contrast (ICD-10-PCS; 2017-10-20)
PROC: 027034Z Dilation of Coronary Artery, One Artery with Drug-eluting Intraluminal Device, Percutaneous Approach (ICD-10-PCS; principal; 2017-10-20 03:48)
PROC: 4A023N7 Measurement of Cardiac Sampling and Pressure, Left Heart, Percutaneous Approach (ICD-10-PCS; 2017-10-20 03:48)
DX: I21.4 Non-ST elevation (NSTEMI) myocardial infarction (principal); E78.00 Pure hypercholesterolemia, unspecified; E78.5 Hyperlipidemia, unspecified; G47.33 Obstructive sleep apnea (adult) (pediatric); G47.00 Insomnia, unspecified; K21.9 Gastro-esophageal reflux disease without esophagitis; I10 Essential (primary) hypertension; I49.3 Ventricular premature depolarization; I25.10 Atherosclerotic heart disease of native coronary artery without angina pectoris; Z82.49 Family history of ischemic heart disease and other diseases of the circulatory system
CPT/HCPCS: 36415; 71045; 80048; 80053; 80061; 82150; 82550; 82553; 83690; 83735; 84100; 84484; 85025; 85379; 85610; 85730; 93005; 93306; 93454; 94760; 96361; 96365; 96366; 96375; 96376; 99291

== ENCOUNTER 2017-11-22 02:32 | Inpatient (IN) | payer BC ==
[2017-11-22] MEDS ORDERED: NITROGLYCERIN OINT 1 INCH/GM PACKET TOPICAL STA (02:38)
[2017-11-22] MEDS ORDERED: ASPIRIN 81 MG PO STA (02:38)
[2017-11-22] MEDS ORDERED: NITROGLYCERIN SL TABS 0.4 MG TAB SUBLINGUAL STA (02:39)
--- NOTE | 2017-11-22 02:42 | ED ---
General Adult HPI - General Chief complaint: Dizziness Stated complaint: Numbness, Dizziness Time Seen by Provider: 11/22/17 02:32 Source: patient, family, RN notes reviewed Mode of arrival: ambulatory Limitations: no limitations - History of Present Illness Initial comments: This is a 52-year-old male who presents emergency Department complaining of right arm pain when he woke up about half an hour ago. Patient states felt like his arm was asleep and slowly trying to wake up. Patient states after he was up while he started having some discomfort in the left arm and that concerned her. Patient states he had a heart attack and stent placed one month ago. Patient states at that time he had no chest pain or difficulty breathing he only had some throat pain. Patient denies any actual numbness patient denies any weakness. Patient denies any chest pain difficulty breathing or shortness of breath. Patient denies any recent fever chills or cough. Patient states she was a little bit dizzy but currently is not. Patient denies headache patient denies numbness weakness. - Related Data Home Medications Medication Instructions Recorded Confirmed Cholecalciferol [Vitamin D3] 5,000 unit PO DAILY 10/20/17 11/22/17 Previous Rx's Medication Instructions Recorded Aspirin 81 mg PO DAILY #1 chewable 10/23/17 Atorvastatin [Lipitor] 80 mg PO HS #30 tab 10/23/17 Clopidogrel [Plavix] 75 mg PO DAILY #30 tab 10/23/17 Famotidine [Pepcid] 20 mg PO BID #60 tab 10/23/17 Metoprolol Tartrate [Lopressor] 25 mg PO TID #90 tab 10/23/17 Nitroglycerin Sl Tabs [Nitrostat] 0.4 mg SUBLINGUAL Q5M PRN #25 tab 10/23/17 Allergies Allergy/AdvReac Type Severity Reaction Status Date / Time No Known Allergies Allergy Verified 11/22/17 02:39 Review of Systems ROS Statement: Those systems with pertinent positive or pertinent negative responses have been documented in the HPI. ROS Other: All systems not noted in ROS Statement are negative. Past Medical History Past Medical History: GERD/Reflux, Myocardial Infarction ([place]) History of Any Multi-Drug Resistant Organisms: None Reported Past Surgical History: Heart Catheterization With Stent, Hernia Repair, Orthopedic Surgery Additional Past Surgical History / Comment(s): ORIF LEFT MID FINGER. MANDIBULAR RECONSTRUCTION., Past Anesthesia/Blood Transfusion Reactions: Motion Sickness Past Psychological History: No Psychological Hx Reported Smoking Status: Never smoker Past Alcohol Use History: Occasional - Past Family History Father Family Medical History: Coronary Artery Disease (CAD), Myocardial Infarction ([place] ) General Exam - General Exam Comments Initial Comments: GENERAL: Patient is well-developed and well-nourished. Patient is nontoxic and well- hydrated and is in mild distress. ENT: Neck is soft and supple. No significant lymphadenopathy is noted. Oropharynx is clear. Moist mucous membranes. Neck has full range of motion without eliciting any pain. EYES: The sclera were anicteric and conjunctiva were pink and moist. Extraocular movements were intact and pupils were equal round and reactive to light. Eyelids were unremarkable. PULMONARY: Unlabored respirations. Good breath sounds bilaterally. No audible rales rhonchi or wheezing was noted. CARDIOVASCULAR: There is a regular rate and rhythm without any murmurs gallops or rubs. ABDOMEN: Soft and nontender with normal bowel sounds. No palpable organomegaly was noted. There is no palpable pulsatile mass. SKIN: Skin is clear with no lesions or rashes and otherwise unremarkable. NEUROLOGIC: Patient is alert and oriented x3. Cranial nerves II through XII are grossly intact. Motor and sensory are also intact. Normal speech, volume and content. Symmetrical smile. MUSCULOSKELETAL: Normal extremities with adequate strength and full range of motion. No lower extremity swelling or edema. No calf tenderness. LYMPHATICS: No significant lymphadenopathy is noted PSYCHIATRIC: Normal psychiatric evaluation. Normal interpersonal interactions appears functionally intact in deals appropriately with others. No signs of depression. No signs of anxiety. Limitations: no limitations Course Vital Signs 11/22/17 11/22/17 11/22/17 02:34 02:50 03:26 Temperature 97.0 F L Pulse Rate 76 86 75 Respiratory 18 18 18 Rate Blood Pressure 106/69 95/65 87/62 O2 Sat by Pulse 100 97 98 Oximetry Medical Decision Making - Medical Decision Making EKG shows a normal sinus rhythm at 75 bpm OK interval is 166 QRS is 92 QT interval 32 QTC is 426. Patient's EKG shows some T-wave inversions in leads 3 and aVF. Chest x-ray shows no acute abnormality. Patient said the nitroglycerin sublingual took away the pain in his arms. I spoke with Dr. Michelle agreed to admit the patient I wrote admitting orders. I consult to cardiology. I started heparin I continued heparin on the floor. - Lab Data Result diagrams: 11/22/17 02:41 11/22/17 02:41 Lab Results 11/22/17 11/22/17 11/22/17 Range/Units 02:41 02:41 02:41 WBC 6.4 (3.8-10.6) k/uL RBC 5.14 (4.30-5.90) m/uL Hgb 14.7 (13.0-17.5) gm/dL Hct 42.7 (39.0-53.0) % MCV 83.1 (80.0-100.0) fL MCH 28.5 (25.0-35.0) pg MCHC 34.3 (31.0-37.0) g/dL RDW 14.1 (11.5-15.5) % Plt Count 167 (150-450) k/uL Neutrophils % 48 % Lymphocytes % 36 % Monocytes % 9 % Eosinophils % 5 % Basophils % 0 % Neutrophils # 3.0 (1.3-7.7) k/uL Lymphocytes # 2.3 (1.0-4.8) k/uL Monocytes # 0.6 (0-1.0) k/uL Eosinophils # 0.3 (0-0.7) k/uL Basophils # 0.0 (0-0.2) k/uL PT (9.0-12.0) sec INR (<1.2) APTT (22.0-30.0) sec Sodium 139 (137-145) mmol/L Potassium 4.1 (3.5-5.1) mmol/L Chloride 105 (98-107) mmol/L Carbon Dioxide 24 (22-30) mmol/L Anion Gap 10 mmol/L BUN 18 (9-20) mg/dL Creatinine 0.90 (0.66-1.25) mg/dL Est GFR (CKD-EPI)AfAm >90 (>60 ml/min/1.73 sqM) Est GFR (CKD-EPI)NonAf >90 (>60 ml/min/1.73 sqM) Glucose 99 (74-99) mg/dL Calcium 8.7 (8.4-10.2) mg/dL Magnesium 2.2 (1.6-2.3) mg/dL Total Bilirubin 0.6 (0.2-1.3) mg/dL AST 39 (17-59) U/L ALT 76 H (21-72) U/L Alkaline Phosphatase 79 (38-126) U/L Total Creatine Kinase 130 (55-170) U/L CK-MB (CK-2) 1.3 (0.0-2.4) ng/mL CK-MB (CK-2) Rel Index 1.0 Troponin I <0.012 (0.000-0.034) ng/mL Total Protein 6.7 (6.3-8.2) g/dL Albumin 3.9 (3.5-5.0) g/dL 11/22/17 Range/Units 02:41 WBC (3.8-10.6) k/uL RBC (4.30-5.90) m/uL Hgb (13.0-17.5) gm/dL Hct (39.0-53.0) % MCV (80.0-100.0) fL MCH (25.0-35.0) pg MCHC (31.0-37.0) g/dL RDW (11.5-15.5) % Plt Count (150-450) k/uL Neutrophils % % Lymphocytes % % Monocytes % % Eosinophils % % Basophils % % Neutrophils # (1.3-7.7) k/uL Lymphocytes # (1.0-4.8) k/uL Monocytes # (0-1.0) k/uL Eosinophils # (0-0.7) k/uL Basophils # (0-0.2) k/uL PT 10.1 (9.0-12.0) sec INR 1.0 (<1.2) APTT 23.7 (22.0-30.0) sec Sodium (137-145) mmol/L Potassium (3.5-5.1) mmol/L Chloride (98-107) mmol/L Carbon Dioxide (22-30) mmol/L Anion Gap mmol/L BUN (9-20) mg/dL Creatinine (0.66-1.25) mg/dL Est GFR (CKD-EPI)AfAm (>60 ml/min/1.73 sqM) Est GFR (CKD-EPI)NonAf (>60 ml/min/1.73 sqM) Glucose (74-99) mg/dL Calcium (8.4-10.2) mg/dL Magnesium (1.6-2.3) mg/dL Total Bilirubin (0.2-1.3) mg/dL AST (17-59) U/L ALT (21-72) U/L Alkaline Phosphatase (38-126) U/L Total Creatine Kinase (55-170) U/L CK-MB (CK-2) (0.0-2.4) ng/mL CK-MB (CK-2) Rel Index Troponin I (0.000-0.034) ng/mL Total Protein (6.3-8.2) g/dL Albumin (3.5-5.0) g/dL Critical Care Time Critical Care Time: Yes Total Critical Care Time: 35 Disposition Clinical Impression: Unstable angina Disposition: ADMITTED IP TO THIS HOSP Referrals: Davis Cabrera DO [Primary Care Provider] - 1-2 days Time of Disposition: 03:35
[2017-11-22 02:51] LABS: Basophils % (A) 0 %; Eosinophils # (A) 0.3 k/uL (0-0.7); Eosinophils % (A) 5 %; HCT 42.7 % (39.0-53.0); HGB 14.7 gm/dL (13.0-17.5); Lymphocytes # (A) 2.3 k/uL (1.0-4.8); Lymphocytes % (A) 36 %; MCH 28.5 pg (25.0-35.0); MCHC 34.3 g/dL (31.0-37.0); MCV 83.1 fL (80.0-100.0); Mean Platelet Volume 6.9; Monocytes # (A) 0.6 k/uL (0-1.0); Monocytes % (A) 9 %; Neutrophils % (A) 48 %; Platelet Count 167 k/uL (150-450); RBC 5.14 m/uL (4.30-5.90); RDW 14.1 % (11.5-15.5); WBC 6.4 k/uL (3.8-10.6)
[2017-11-22 03:00] LABS: Partial Thromboplastin Time 23.7 sec (22.0-30.0); Prothrombin Time 10.1 sec (9.0-12.0)
[2017-11-22 03:01] LABS: ALT 76 U/L (21-72); AST 39 U/L (17-59); Albumin 3.9 g/dL (3.5-5.0); Alkaline Phosphatase 79 U/L (38-126); Anion Gap 10 mmol/L; Blood Urea Nitrogen 18 mg/dL (9-20); Calcium 8.7 mg/dL (8.4-10.2); Carbon Dioxide 24 mmol/L (22-30); Chloride 105 mmol/L (98-107); Glucose 99 mg/dL (74-99); Magnesium 2.2 mg/dL (1.6-2.3); Potassium 4.1 mmol/L (3.5-5.1); Sodium 139 mmol/L (137-145); Total Bilirubin 0.6 mg/dL (0.2-1.3); Total Protein 6.7 g/dL (6.3-8.2)
--- NOTE | 2017-11-22 03:08 | XR ---
EXAMINATION TYPE: XR chest 2V DATE OF EXAM: 11/22/2017 COMPARISON: 10/20/2017 HISTORY: Chest pain TECHNIQUE: Frontal and lateral views of the chest are obtained. FINDINGS: Heart and mediastinum are normal. Lungs are clear. Diaphragm is normal. Bony thorax appear s normal. IMPRESSION: Normal chest. No change.
[2017-11-22 03:15] LABS: Creatine Kinase 130 U/L (55-170)
[2017-11-22] MEDS ORDERED: SODIUM CHLORIDE 0.9% 500 ML IV ONE (03:24)
[2017-11-22 03:28] LABS: Creatine Kinase MB 1.3 ng/mL (0.0-2.4); Troponin I <0.012 ng/mL (0.000-0.034)
[2017-11-22] MEDS ORDERED: HEPARIN SODIUM,PORCINE 5,000 UNIT/ML 1 ML VIAL IV ONE (03:34)
[2017-11-22] MEDS ORDERED: NITROGLYCERIN SL TABS 0.4 MG TAB SUBLINGUAL PRN ×2 (03:36→11:03)
[2017-11-22] MEDS ORDERED: HEPARIN SODIUM,PORCINE/D5W PMX 25,000 UNIT in DEXTROSE/WATER 1 500ML.BAG IV SCH (03:45)
[2017-11-22 05:32] VITALS: BMI 25.1
[2017-11-22 08:31] LABS: Creatine Kinase 104 U/L (55-170)
[2017-11-22 08:34] VITALS: RESP 20
[2017-11-22 08:45] LABS: Creatine Kinase MB 1.1 ng/mL (0.0-2.4); Troponin I <0.012 ng/mL (0.000-0.034)
[2017-11-22] MEDS ORDERED: CLOPIDOGREL 75 MG TAB PO SCH (09:00)
[2017-11-22] MEDS ORDERED: FAMOTIDINE 20 MG TAB PO SCH (09:00)
[2017-11-22] MEDS ORDERED: METOPROLOL TARTRATE 25 MG TAB PO SCH (09:00)
[2017-11-22 11:33] VITALS: BP 99/66; PULSE 75; TEMP 97
[2017-11-22] MEDS ORDERED: NITROGLYCERIN OINT 1 INCH/GM PACKET TOPICAL SCH (12:00)
[2017-11-22 14:44] LABS: Creatine Kinase 102 U/L (55-170)
[2017-11-22 14:57] LABS: Creatine Kinase MB 0.9 ng/mL (0.0-2.4); Troponin I <0.012 ng/mL (0.000-0.034)
--- NOTE | 2017-11-22 19:21 | HP ---
HISTORY AND PHYSICAL HISTORY AND PHYSICAL AND DISCHARGE SUMMARY: DATE OF ADMISSION: 11/22/17. DATE OF DISCHARGE: 11/22/17. PRESENT COMPLAINT: Arm pain. HISTORY OF PRESENTING COMPLAINT: This is a pleasant 52-year-old patient who was in the hospital here about on October 20, presented with acute NC with stent to the first obtuse marginal of the left circumflex. The patient's chronic stable medical conditions include coronary artery disease, GERD, hyperlipidemia. The patient has been doing well since he was discharged on October 23. He did have a low-dose stress test by Dr. Law and did rather well of the same. The patient woke up about 2:00 a.m. with numbness in the right arm and some discomfort and he thought he must have slept on it and then he noticed the same in the left arm, some achiness in the left arm. There was no shortness of breath. No chest pain. No perspiration. No tiredness. Patient did feel a bit dizzy. Because of the conglomeration of symptoms, the patient decided to come in to rule out a cardiac cause. The patient has been otherwise doing good walking every day and not having any cardiac symptoms. REVIEW OF SYSTEMS: CONSTITUTIONAL: None. HEENT: None. RESPIRATORY: None. CARDIOVASCULAR: No chest pain. GASTROINTESTINAL: Heartburn. GENITOURINARY: None. MUSCULOSKELETAL: As above. DERMATOLOGICAL, HEMATOLOGIC, LYMPHATIC: None. PSYCHIATRY: None. NEUROLOGICAL: None. PAST MEDICAL HISTORY: Coronary artery disease, GERD, hyperlipidemia. PAST SURGICAL HISTORY: Cardiac cath with stent, ORIF of the left middle finger, mandible reconstruction. SOCIAL HISTORY: No smoking. Occasional marijuana. 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 . FAMILY HISTORY: Coronary artery disease. HOME MEDICATIONS: 1. Multivitamin 1 tablet p.o. daily. 2. Nitrostat 0.4 sublingual q.5 p.r.n. 3. Lopressor 25 p.o. t.i.d. 4. Pepcid 20 mg p.o. b.i.d. 5. Plavix 75 mg p.o. daily. 6. Vitamin D3 5000 units p.o. daily. 7. Lipitor 80 mg p.o. q.h.s. 8. Aspirin 81 mg p.o. daily. ALLERGIES: None. PHYSICAL EXAMINATION: Temperature 97, pulse 75, respiratory 20, blood pressure 99/56, pulse ox 97% on room air. GENERAL APPEARANCE: Average built, sitting up, comfortable. EYES: Pupils equal. Conjunctivae normal. HEENT: External appearance of nose and ears normal. Oral cavity normal. NECK: JVD not raised. Mass not palpable. RESPIRATORY: Effort, lungs are clear. CARDIOVASCULAR: First and second sounds normal. No edema. ABDOMEN: Soft, nontender. Liver and spleen not palpable. LYMPHATIC: No lymph node palpable in the neck or axillae. PSYCHIATRY: Alert and oriented x3. Mood and affect normal. INVESTIGATIONS: White count 6.4, hemoglobin 14.7, potassium 4.1, BUN and creatinine is normal. Troponin x2 less than 0.012. EKG normal sinus rhythm with slight ST-segment changes in the inferior lateral leads. Troponin x2 are negative. ASSESSMENT: 1. Bilateral arm pain. Cardiac cause to be ruled out. 2. Coronary artery disease with stent to obtuse marginal a month ago. 3. Gastroesophageal reflux disease. 4. Hyperlipidemia. PLAN: Home medications are resumed. Cardiology Dr. Torres was consulted. The patient did walk up and down and had no further symptoms. Nurse called me this afternoon that Dr. Torres had seen the patient and okayed the patient to be discharged. The patient is to continue his home medications. Follow up with Dr. Cabrera in 3 days. Follow up with Dr. Law next week. Home medications to continue. MMODL / TIMOTHYN: [id number] /
--- NOTE | 2017-11-22 19:33 | CONS ---
CONSULTATION This is a 52-year-old male patient who woke up with right arm numbness and then had discomfort in the left arm and came to the hospital because he has a history of coronary stenting about a month back. However, these symptoms are very different from the symptoms he experienced last month. At this time, he denies any chest discomfort. No dizziness, lightheadedness, palpitations. He has even walked in the hallways and is quite comfortable. MEDICATIONS: Include aspirin, atorvastatin, clopidogrel, metoprolol and nitroglycerin. ALLERGIES: No known drug allergies. REVIEW OF SYSTEMS: No fever chills. No cough or expectoration. No nausea, vomiting, or diarrhea. No hematuria or dysuria. No strokes, seizures or skin lesions. No musculoskeletal complaints. PAST HISTORY: GERD, orthopedic surgery, hernia surgery, and coronary stenting. SOCIAL HISTORY: He is a never smoker. Alcohol use occasional. PHYSICAL EXAMINATION: His blood pressure is 104/67 mmHg, pulse rate in the 60s and 70s, afebrile 97.5 degrees Fahrenheit. Head and neck examination normal. Heart sounds are normal. Lungs are clear to auscultation. Extremities are warm, no edema. IMPRESSION: 1. Known coronary artery disease, status post stenting about a month back. 2. Atypical discomfort with normal cardiac enzymes and normal ECG. SUGGEST: Continue current medications without any changes. May go home today. Follow with Dr. Law as previously scheduled and proceed with cardiac rehab. MMODL / IJN: [id number] /
[2017-11-22] MEDS ORDERED: ATORVASTATIN 80 MG TAB PO SCH (21:00)
[2017-11-23] MEDS ORDERED: ASPIRIN 325 MG TAB PO SCH (09:00)
== END 2017-11-22 14:57 | disposition home or self-care (01) | DRG 556 ==
LOC: EC 02:32 → 6SEL 03:36
PROVIDERS: ADMIT Hospitalist; ATTEND Hospitalist
DX: M79.601 Pain in right arm (principal); I25.110 Atherosclerotic heart disease of native coronary artery with unstable angina pectoris; M79.602 Pain in left arm; E78.5 Hyperlipidemia, unspecified; F12.90 Cannabis use, unspecified, uncomplicated; I25.2 Old myocardial infarction; K21.9 Gastro-esophageal reflux disease without esophagitis; Z79.02 Long term (current) use of antithrombotics/antiplatelets; Z79.82 Long term (current) use of aspirin; Z79.899 Other long term (current) drug therapy; Z82.49 Family history of ischemic heart disease and other diseases of the circulatory system; Z95.5 Presence of coronary angioplasty implant and graft
CPT/HCPCS: 36415; 71046; 80053; 82550; 82553; 83735; 84484; 85025; 85610; 85730; 93005; 96361; 96374; 99285

== ENCOUNTER 2022-12-27 21:36 | Inpatient (IN) | payer BC ==
--- NOTE | 2022-12-27 21:58 | ED ---
General Adult HPI - General Chief complaint: Chest Pain Stated complaint: Throat Pain,Scheduled for heart cath Time Seen by Provider: 12/27/22 21:43 Source: patient, RN notes reviewed, old records reviewed Mode of arrival: ambulatory Limitations: no limitations - History of Present Illness Initial comments: 57-year-old male history of CAD status post stenting approximate 7 years ago presents for evaluation of chest discomfort. Patient's symptoms have been present for the past several weeks. He was seen by his fitness studies teacher who scheduled him for heart cath in 6 days. This evening he developed a tightness in his throat which she states is similar to symptoms that he had with his previous HI 7 years ago. He is currently on statin, metoprolol, 81 mg aspirin. Patient states he also has some bilateral tightness in his upper extremities. No chest pain while at rest. - Related Data Home Medications Medication Instructions Recorded Confirmed Cholecalciferol [Vitamin D3 (25 5,000 unit PO DAILY 10/20/17 11/22/17 Mcg = 1000 Iu)] Multivitamin/Iron/Folic Acid 1 tab PO DAILY 11/22/17 11/22/17 [Centrum Complete Multivit Tab] Previous Rx's Medication Instructions Recorded Aspirin 81 mg PO DAILY #1 chewable 10/23/17 Atorvastatin [Lipitor] 80 mg PO HS #30 tab 10/23/17 Clopidogrel [Plavix] 75 mg PO DAILY #30 tab 10/23/17 Famotidine [Pepcid] 20 mg PO BID #60 tab 10/23/17 Metoprolol Tartrate [Lopressor] 25 mg PO TID #90 tab 10/23/17 Nitroglycerin Sl Tabs [Nitrostat] 0.4 mg SUBLINGUAL Q5M PRN #25 tab 10/23/17 Allergies Allergy/AdvReac Type Severity Reaction Status Date / Time No Known Allergies Allergy Verified 11/22/17 12:06 Review of Systems ROS Statement: Those systems with pertinent positive or pertinent negative responses have been documented in the HPI. ROS Other: All systems not noted in ROS Statement are negative. Past Medical History Past Medical History: GERD/Reflux, Myocardial Infarction (HI) Last Myocardial Infarction Date:: october 2017 History of Any Multi-Drug Resistant Organisms: None Reported Past Surgical History: Heart Catheterization With Stent, Hernia Repair, Orthopedic Surgery Additional Past Surgical History / Comment(s): ORIF LEFT MID FINGER. MANDIBULAR RECONSTRUCTION. heart cath with stent in october of 2017 Past Anesthesia/Blood Transfusion Reactions: Motion Sickness Date of Last Stent Placement:: october 2017 Past Psychological History: No Psychological Hx Reported Smoking Status: Never smoker Past Alcohol Use History: Occasional Past Drug Use History: Marijuana - Past Family History Father Family Medical History: Coronary Artery Disease (CAD), Myocardial Infarction (HI) General Exam Limitations: no limitations General appearance: alert, in no apparent distress Head exam: Present: atraumatic, normocephalic Eye exam: Present: normal appearance, PERRL ENT exam: Present: normal exam Neck exam: Present: normal inspection. Absent: tenderness, meningismus Respiratory exam: Present: normal lung sounds bilaterally. Absent: respiratory distress, wheezes Cardiovascular Exam: Present: regular rate, normal rhythm GI/Abdominal exam: Present: soft. Absent: distended, tenderness Extremities exam: Present: normal inspection, normal capillary refill. Absent: pedal edema, calf tenderness Neurological exam: Present: alert, oriented X3, CN II-XII intact. Absent: motor sensory deficit Psychiatric exam: Present: normal affect, normal mood Skin exam: Present: warm, dry, intact. Absent: cyanosis, diaphoretic Course Vital Signs 12/27/22 12/27/22 21:39 22:59 Temperature 97.9 F Pulse Rate 95 85 Respiratory 18 16 Rate Blood Pressure 138/91 123/92 O2 Sat by Pulse 97 96 Oximetry Medical Decision Making - Medical Decision Making Was pt. sent in by a medical professional or institution (, PA, [facility] [employer], urgent care, hospital, or care home...) When possible be specific @ -No Did you speak to anyone other than the patient for history (EMS, parent, family, police, friend...)? What history was obtained from this source @ -No Did you review nursing and triage notes (agree or disagree)? Why? @ -I reviewed and agree with nursing and triage notes Were old charts reviewed (outside hosp., previous admission, EMS record, old EKG, old radiological studies, urgent care reports/EKG's, care home records)? Report findings @ -No old charts were reviewed Differential Diagnosis (chest pain, altered mental status, abdominal pain women, abdominal pain men, vaginal bleeding, weakness, fever, dyspnea, syncope, headache, dizziness, GI bleed, back pain, seizure, CVA, palpatations, mental health, musculoskeletal)? @ -Differential Chest Pain: Stable Angina, Unstable Angina, STEMI, NSTEMI Aortic Dissection, Pneumothorax, Musculoskeletal, Esophageal Spasm GERD, Cholecystitis, Pancreatitis, Zoster, this is not meant to be an all-inclusive list. EKG interpreted by me (3pts min.). @ -[EKG: Sinus rhythm rate of 86, SC interval 169, QRS duration 112, QTC 394, no ST segment elevation. X-rays interpreted by me (1pt min.). @ -None done CT interpreted by me (1pt min.). @ -None done U/S interpreted by me (1pt. min.). @ -None done What testing was considered but not performed or refused? (CT, X-rays, U/S, labs)? Why? @ -None What meds were considered but not given or refused? Why? @ -None Did you discuss the management of the patient with other professionals (professionals i.e. , PA, [facility] [employer], lab, RT, psych nurse, school social worker, community advocate, teacher, national service officer, casey saw operator)? Give summary @ -[[facility] Sheet Was smoking cessation discussed for >3mins.? @ -No Was critical care preformed (if so, how long)? @ -No Were there social determinants of health that impacted care today? How? (Homelessness, low income, unemployed, alcoholism, drug addiction, transportation, low edu. Level, literacy, decrease access to med. care, prison, rehab)? @ -No Was there de-escalation of care discussed even if they declined (Discuss DNR or withdrawal of care, Hospice)? DNR status @ -No What co-morbidities impacted this encounter? (DM, HTN, Smoking, COPD, CAD, Cancer, CVA, ARF, Chemo, Hep., AIDS, mental health diagnosis, sleep apnea, morbid obesity)? @ -CAD Was patient admitted / discharged? Hospital course, mention meds given and route, prescriptions, significant lab abnormalities, going to OR and other pertinent info. @ 57 -year-old male presenting for evaluation of chest discomfort symptoms similar to previous HI. EKG is sinus without ST segment elevation. CBC, CMP unremarkable. Chest x-ray is clear. Initial troponin negative. He will be kept in observation for serial cardiac enzymes, telemetry, cardiology consultation. Undiagnosed new problem with uncertain prognosis? @ -No Drug Therapy requiring intensive monitoring for toxicity (Heparin, Nitro, Insulin, Cardizem)? @ -No Were any procedures done? @ -No Diagnosis/symptom? @ -Chest pain rule out Acute, or Chronic, or Acute on Chronic? @ -[Acute Uncomplicated (without systemic symptoms) or Complicated (systemic symptoms)? @ -default Side effects of treatment? @ -No Exacerbation, Progression, or Severe Exacerbation? @ -No Poses a threat to life or bodily function? How? (Chest pain, USA, HI, pneumonia, PE, COPD, DKA, ARF, appy, cholecystitis, CVA, Diverticulitis, Homicidal, Suicidal, threat to staff... and all critical care pts) @ -[Yes, chest pain - Lab Data Result diagrams: 12/27/22 22:02 12/27/22 22:02 Lab Results 12/27/22 12/27/22 12/27/22 Range/Units 22:02 22:02 22:02 WBC 8.4 (3.8-10.6) k/uL RBC 4.84 (4.30-5.90) m/uL Hgb 13.9 (13.0-17.5) gm/dL Hct 41.4 (39.0-53.0) % MCV 85.5 (80.0-100.0) fL MCH 28.6 (25.0-35.0) pg MCHC 33.5 (31.0-37.0) g/dL RDW 12.8 (11.5-15.5) % Plt Count 203 (150-450) k/uL MPV 7.9 Neutrophils % 57 % Lymphocytes % 31 % Monocytes % 7 % Eosinophils % 4 % Basophils % 0 % Neutrophils # 4.8 (1.3-7.7) k/uL Lymphocytes # 2.6 (1.0-4.8) k/uL Monocytes # 0.6 (0-1.0) k/uL Eosinophils # 0.3 (0-0.7) k/uL Basophils # 0.0 (0-0.2) k/uL PT 10.0 (9.0-12.0) sec INR 0.9 (<1.2) APTT 24.5 (22.0-30.0) sec Sodium 139 (137-145) mmol/L Potassium 3.7 (3.5-5.1) mmol/L Chloride 102 (98-107) mmol/L Carbon Dioxide 28 (22-30) mmol/L Anion Gap 9 mmol/L BUN 21 H (9-20) mg/dL Creatinine 1.13 (0.66-1.25) mg/dL Est GFR (CKD-EPI)AfAm 83 (>60 ml/min/1.73 sqM) Est GFR (CKD-EPI)NonAf 72 (>60 ml/min/1.73 sqM) Glucose 121 H (74-99) mg/dL Calcium 8.6 (8.4-10.2) mg/dL Magnesium 2.0 (1.6-2.3) mg/dL Total Bilirubin 0.6 (0.2-1.3) mg/dL AST 26 (17-59) U/L ALT 33 (4-49) U/L Alkaline Phosphatase 73 (38-126) U/L Troponin I (0.000-0.034) ng/mL Total Protein 6.9 (6.3-8.2) g/dL Albumin 3.7 (3.5-5.0) g/dL 12/27/22 Range/Units 22:02 WBC (3.8-10.6) k/uL RBC (4.30-5.90) m/uL Hgb (13.0-17.5) gm/dL Hct (39.0-53.0) % MCV (80.0-100.0) fL MCH (25.0-35.0) pg MCHC (31.0-37.0) g/dL RDW (11.5-15.5) % Plt Count (150-450) k/uL MPV Neutrophils % % Lymphocytes % % Monocytes % % Eosinophils % % Basophils % % Neutrophils # (1.3-7.7) k/uL Lymphocytes # (1.0-4.8) k/uL Monocytes # (0-1.0) k/uL Eosinophils # (0-0.7) k/uL Basophils # (0-0.2) k/uL PT (9.0-12.0) sec INR (<1.2) APTT (22.0-30.0) sec Sodium (137-145) mmol/L Potassium (3.5-5.1) mmol/L Chloride (98-107) mmol/L Carbon Dioxide (22-30) mmol/L Anion Gap mmol/L BUN (9-20) mg/dL Creatinine (0.66-1.25) mg/dL Est GFR (CKD-EPI)AfAm (>60 ml/min/1.73 sqM) Est GFR (CKD-EPI)NonAf (>60 ml/min/1.73 sqM) Glucose (74-99) mg/dL Calcium (8.4-10.2) mg/dL Magnesium (1.6-2.3) mg/dL Total Bilirubin (0.2-1.3) mg/dL AST (17-59) U/L ALT (4-49) U/L Alkaline Phosphatase (38-126) U/L Troponin I <0.012 (0.000-0.034) ng/mL Total Protein (6.3-8.2) g/dL Albumin (3.5-5.0) g/dL Disposition Clinical Impression: Chest pain Disposition: ADMITTED IP TO THIS [facility] Condition: Stable Is patient prescribed a controlled substance at d/c from ED?: No Referrals: Davis Cabrera DO [Primary Care Provider] - 1-2 days Time of Disposition: 23:07
[2022-12-27 22:18] LABS: Basophils % (A) 0 %; Eosinophils # (A) 0.3 k/uL (0-0.7); Eosinophils % (A) 4 %; HCT 41.4 % (39.0-53.0); HGB 13.9 gm/dL (13.0-17.5); Lymphocytes # (A) 2.6 k/uL (1.0-4.8); Lymphocytes % (A) 31 %; MCH 28.6 pg (25.0-35.0); MCHC 33.5 g/dL (31.0-37.0); MCV 85.5 fL (80.0-100.0); Mean Platelet Volume 7.9; Monocytes # (A) 0.6 k/uL (0-1.0); Monocytes % (A) 7 %; Neutrophils # (A) 4.8 k/uL (1.3-7.7); Neutrophils % (A) 57 %; Platelet Count 203 k/uL (150-450); RBC 4.84 m/uL (4.30-5.90); RDW 12.8 % (11.5-15.5); WBC 8.4 k/uL (3.8-10.6)
[2022-12-27 22:32] LABS: INR 0.9 (<1.2); Partial Thromboplastin Time 24.5 sec (22.0-30.0)
[2022-12-27 22:34] LABS: ALT 33 U/L (4-49); AST 26 U/L (17-59); African American GFR (CKD) 83 (>60 ml/min/1.73 sqM); Albumin 3.7 g/dL (3.5-5.0); Alkaline Phosphatase 73 U/L (38-126); Anion Gap 9 mmol/L; Blood Urea Nitrogen 21 mg/dL (9-20); Calcium 8.6 mg/dL (8.4-10.2); Carbon Dioxide 28 mmol/L (22-30); Chloride 102 mmol/L (98-107); Glucose 121 mg/dL (74-99); Non-African American GFR(CKD) 72 (>60 ml/min/1.73 sqM); Potassium 3.7 mmol/L (3.5-5.1); Sodium 139 mmol/L (137-145); Total Bilirubin 0.6 mg/dL (0.2-1.3); Total Protein 6.9 g/dL (6.3-8.2)
--- NOTE | 2022-12-27 22:58 | XR ---
EXAM: XR Chest, 2 Views CLINICAL HISTORY: ITS.REASON XR Reason: Chest Pain TECHNIQUE: Frontal and lateral views of the chest. COMPARISON: No relevant prior studies available. FINDINGS: Lungs: Unremarkable. No consolidation. Pleural space: Unremarkable. No pneumothorax. Heart: Unremarkable. No cardiomegaly. Mediastinum: Unremarkable. Bones/joints: Unremarkable. IMPRESSION: Normal chest x-rays.
[2022-12-27] MEDS ORDERED: NALOXONE 0.4 MG/ML 1 ML VIAL IV PRN (23:03)
[2022-12-27] MEDS ORDERED: ACETAMINOPHEN TAB 325 MG TAB PO PRN (23:03)
[2022-12-27] MEDS ORDERED: MORPHINE SULFATE 4 MG/ML SYRINGE IV PRN (23:03)
[2022-12-27] MEDS ORDERED: ASPIRIN 325 MG TAB PO STA (23:03)
[2022-12-27] MEDS ORDERED: NITROGLYCERIN SL TABS 0.4 MG TAB SUBLINGUAL PRN (23:04)
[2022-12-28] MEDS ORDERED: ALPRAZolam 0.5 MG TAB PO PRN (11:08)
[2022-12-28] MEDS ORDERED: NITROGLYCERIN SL TABS 0.4 MG TAB SUBLINGUAL PRN (11:08)
[2022-12-28] MEDS ORDERED: ATORVASTATIN 80 MG TAB PO STA (11:08)
[2022-12-28] MEDS ORDERED: ASPIRIN 325 MG TAB PO STA (11:08)
[2022-12-28] MEDS ORDERED: ALPRAZolam 0.25 MG TAB PO PRN (11:08)
--- NOTE | 2022-12-28 11:08 | P.CRDCN ---
History of Present Illness History of present illness: HISTORY OF PRESENTING ILLNESS This is a pleasant 57-year-old with past medical history significant for With history of GERD, myocardial infarction with PCI 2018, hyperlipidemia. He follows in the office with Dr Law. Over last 3 weeks he has been noticing increased episodes of chest pressure and throat tightness which normally occurs with any exertion and improved with rest. He saw Dr. Law and was increased on the metoprolol and added Imdur and scheduled for heart catheterization this upcoming week. Unfortunately yesterday he had an episode while he was sitting and not doing anything and more significant sensation in the center of his chest felt similar to his prior ID and therefore presented to the ER. Symptoms improved in the ER. EKG showed mild ST depressions in the inferior and lateral leads. REVIEW OF SYSTEMS At the time of my exam: CONSTITUTIONAL: Denies fever or chills. CARDIOVASCULAR: +chest pain, no shortness of breath, orthopnea, PND or palpitations. RESPIRATORY: Denies cough. GASTROINTESTINAL: Denies abdominal pain, diarrhea, constipation, nausea or vomiting. MUSCULOSKELETAL: Denies myalgias. NEUROLOGIC: Denies numbness, tingling or weakness. ENDOCRINE: Denies fatigue, weight change, polydipsia or polyurina. GENITOURINARY: Denies burning, hematuria or urgency with micturation. HEMATOLOGIC: Denies history of anemia or bleeding. PHYSICAL EXAMINATION Vital signs reviewed. CONSTITUTIONAL: No apparent distress. HEENT: Head is normocephalic. Pupils are equal, round. Sclerae anicteric. Mucous membranes of the mouth are moist. No JVD. No carotid bruit. CHEST EXAMINATION: Lungs are clear to auscultation. No chest wall tenderness is noted on palpation or with deep breathing. HEART EXAMINATION: Regular rate and rhythm. S1, S2 heard. No murmurs, gallops or rub. ABDOMEN: Soft, nontender. Positive bowel sounds. EXTREMITIES: 2+ peripheral pulses, no lower extremity edema and no calf tenderness. NEUROLOGIC EXAMINATION: Patient is awake, alert and oriented x3. ASSESSMENT Unstable angina CAD with prior history of PCI Hyperlipidemia Hypertension PLAN Having typical angina Last few weeks and now occurring at rest consistent with unstable angina. Continue with aspirin, start heparin drip. Check 2-D echo. Patient scheduled for heart catheterization this upcoming week however discussed performing likely tomorrow. Discussed if any symptoms recur notified nurse. Further recommendations to follow. Past Medical History Past Medical History: GERD/Reflux, Myocardial Infarction (ID) Last Myocardial Infarction Date:: october 2017 History of Any Multi-Drug Resistant Organisms: None Reported Past Surgical History: Heart Catheterization With Stent, Hernia Repair, Orthopedic Surgery Additional Past Surgical History / Comment(s): ORIF LEFT MID FINGER. MANDIBULAR RECONSTRUCTION. heart cath with stent in october of 2017 Past Anesthesia/Blood Transfusion Reactions: Motion Sickness Date of Last Stent Placement:: october 2017 Past Psychological History: No Psychological Hx Reported Smoking Status: Never smoker Past Alcohol Use History: Occasional Past Drug Use History: Marijuana - Past Family History Father Family Medical History: Coronary Artery Disease (CAD), Myocardial Infarction (ID) Medications and Allergies Home Medications Medication Instructions Recorded Confirmed Type Cholecalciferol [Vitamin D3 (25 5,000 unit PO DAILY 10/20/17 11/22/17 History Mcg = 1000 Iu)] Aspirin 81 mg PO DAILY #1 chewable 10/23/17 11/22/17 Rx Atorvastatin [Lipitor] 80 mg PO HS #30 tab 10/23/17 11/22/17 Rx Clopidogrel [Plavix] 75 mg PO DAILY #30 tab 10/23/17 11/22/17 Rx Famotidine [Pepcid] 20 mg PO BID #60 tab 10/23/17 11/22/17 Rx Metoprolol Tartrate [Lopressor] 25 mg PO TID #90 tab 10/23/17 11/22/17 Rx Nitroglycerin Sl Tabs [Nitrostat] 0.4 mg SUBLINGUAL Q5M PRN #25 tab 10/23/17 11/22/17 Rx Multivitamin/Iron/Folic Acid 1 tab PO DAILY 11/22/17 11/22/17 History [Centrum Complete Multivit Tab] Allergies Allergy/AdvReac Type Severity Reaction Status Date / Time No Known Allergies Allergy Verified 11/22/17 12:06 Physical Exam Vitals: Vital Signs Temp Pulse Pulse Resp BP BP Pulse Ox 12/28/22 08:33 97 12/28/22 07:00 98 F 75 16 114/72 98 12/28/22 00:00 98.1 F 80 16 126/85 97 12/27/22 23:29 79 14 120/86 95 12/27/22 22:59 85 16 123/92 96 12/27/22 21:39 97.9 F 95 18 138/91 97 FiO2 12/28/22 08:33 21 12/28/22 07:00 12/28/22 00:00 12/27/22 23:29 12/27/22 22:59 12/27/22 21:39 Intake and Output 12/27/22 12/28/22 12/28/22 22:59 06:59 14:59 Other: # Voids 0 Weight 89.811 kg 89.811 kg Results 12/27/22 22:02 12/27/22 22:02 Cardiac Enzymes 12/27/22 12/27/22 12/27/22 Range/Units 22:02 22:02 22:02 WBC 8.4 (3.8-10.6) k/uL RBC 4.84 (4.30-5.90) m/uL Hgb 13.9 (13.0-17.5) gm/dL Hct 41.4 (39.0-53.0) % MCV 85.5 (80.0-100.0) fL MCH 28.6 (25.0-35.0) pg MCHC 33.5 (31.0-37.0) g/dL RDW 12.8 (11.5-15.5) % Plt Count 203 (150-450) k/uL MPV 7.9 Neutrophils % 57 % Lymphocytes % 31 % Monocytes % 7 % Eosinophils % 4 % Basophils % 0 % Neutrophils # 4.8 (1.3-7.7) k/uL Lymphocytes # 2.6 (1.0-4.8) k/uL Monocytes # 0.6 (0-1.0) k/uL Eosinophils # 0.3 (0-0.7) k/uL Basophils # 0.0 (0-0.2) k/uL PT 10.0 (9.0-12.0) sec INR 0.9 (<1.2) APTT 24.5 (22.0-30.0) sec Sodium 139 (137-145) mmol/L Potassium 3.7 (3.5-5.1) mmol/L Chloride 102 (98-107) mmol/L Carbon Dioxide 28 (22-30) mmol/L Anion Gap 9 mmol/L BUN 21 H (9-20) mg/dL Creatinine 1.13 (0.66-1.25) mg/dL Est GFR (CKD-EPI)AfAm 83 (>60 ml/min/1.73 sqM) Est GFR (CKD-EPI)NonAf 72 (>60 ml/min/1.73 sqM) Glucose 121 H (74-99) mg/dL Calcium 8.6 (8.4-10.2) mg/dL Magnesium 2.0 (1.6-2.3) mg/dL Total Bilirubin 0.6 (0.2-1.3) mg/dL AST 26 (17-59) U/L ALT 33 (4-49) U/L Alkaline Phosphatase 73 (38-126) U/L Troponin I (0.000-0.034) ng/mL Total Protein 6.9 (6.3-8.2) g/dL Albumin 3.7 (3.5-5.0) g/dL 12/27/22 12/28/22 12/28/22 Range/Units 22:02 00:20 04:16 WBC (3.8-10.6) k/uL RBC (4.30-5.90) m/uL Hgb (13.0-17.5) gm/dL Hct (39.0-53.0) % MCV (80.0-100.0) fL MCH (25.0-35.0) pg MCHC (31.0-37.0) g/dL RDW (11.5-15.5) % Plt Count (150-450) k/uL MPV Neutrophils % % Lymphocytes % % Monocytes % % Eosinophils % % Basophils % % Neutrophils # (1.3-7.7) k/uL Lymphocytes # (1.0-4.8) k/uL Monocytes # (0-1.0) k/uL Eosinophils # (0-0.7) k/uL Basophils # (0-0.2) k/uL PT (9.0-12.0) sec INR (<1.2) APTT (22.0-30.0) sec Sodium (137-145) mmol/L Potassium (3.5-5.1) mmol/L Chloride (98-107) mmol/L Carbon Dioxide (22-30) mmol/L Anion Gap mmol/L BUN (9-20) mg/dL Creatinine (0.66-1.25) mg/dL Est GFR (CKD-EPI)AfAm (>60 ml/min/1.73 sqM) Est GFR (CKD-EPI)NonAf (>60 ml/min/1.73 sqM) Glucose (74-99) mg/dL Calcium (8.4-10.2) mg/dL Magnesium (1.6-2.3) mg/dL Total Bilirubin (0.2-1.3) mg/dL AST (17-59) U/L ALT (4-49) U/L Alkaline Phosphatase (38-126) U/L Troponin I <0.012 <0.012 <0.012 (0.000-0.034) ng/mL Total Protein (6.3-8.2) g/dL Albumin (3.5-5.0) g/dL Coagulation 12/27/22 Range/Units 22:02 PT 10.0 (9.0-12.0) sec APTT 24.5 (22.0-30.0) sec CBC 12/27/22 Range/Units 22:02 WBC 8.4 (3.8-10.6) k/uL RBC 4.84 (4.30-5.90) m/uL Hgb 13.9 (13.0-17.5) gm/dL Hct 41.4 (39.0-53.0) % Plt Count 203 (150-450) k/uL Comprehensive Metabolic Panel 12/27/22 Range/Units 22:02 Sodium 139 (137-145) mmol/L Potassium 3.7 (3.5-5.1) mmol/L Chloride 102 (98-107) mmol/L Carbon Dioxide 28 (22-30) mmol/L BUN 21 H (9-20) mg/dL Creatinine 1.13 (0.66-1.25) mg/dL Glucose 121 H (74-99) mg/dL Calcium 8.6 (8.4-10.2) mg/dL AST 26 (17-59) U/L ALT 33 (4-49) U/L Alkaline Phosphatase 73 (38-126) U/L Total Protein 6.9 (6.3-8.2) g/dL Albumin 3.7 (3.5-5.0) g/dL Current Medications Generic Name Dose Route Start Last Admin Trade Name Freq PRN Reason Stop Dose Admin Acetaminophen 650 mg 12/27/22 23:03 Acetaminophen Tab 325 Mg Tab PO Q6HR PRN Mild Pain or Fever > 100.5 Aspirin 81 mg 12/28/22 09:00 Aspirin 81 Mg PO DAILY [facility] Atorvastatin Calcium 80 mg 12/28/22 21:00 Atorvastatin 80 Mg Tab PO HS [facility] Metoprolol Tartrate 25 mg 12/28/22 09:00 Metoprolol Tartrate 25 Mg Tab PO TID [facility] Morphine Sulfate 4 mg 12/27/22 23:03 Morphine Sulfate 4 Mg/Ml Syringe IV Q4HR PRN Severe Pain (Scale 7 to 10) Naloxone HCl 0.2 mg 12/27/22 23:03 Naloxone 0.4 Mg/Ml 1 Ml Vial IV Q2M PRN Opioid Reversal Nitroglycerin 0.4 mg 12/27/22 23:04 Nitroglycerin Sl Tabs 0.4 Mg Tab SUBLINGUAL Q5M PRN Chest Pain Intake and Output 12/27/22 12/28/22 12/28/22 22:59 06:59 14:59 Other: # Voids 0 Weight 89.811 kg 89.811 kg 12/27/22 22:02 12/27/22 22:02
[2022-12-28] MEDS ORDERED: HEPARIN SODIUM 1,000 UN/ML (10ML VL) IV ONE (11:09)
[2022-12-28] MEDS ORDERED: HEPARIN SOD,PORK IN 0.45% NACL 25,000 UNIT in 0.45% NACL 1 250ML.BAG IV SCH (11:15)
[2022-12-28] MEDS: ASPIRIN 81 MG PO SCH (12:45)
[2022-12-28] MEDS: METOPROLOL TARTRATE 25 MG TAB PO SCH ×3 (12:45→21:08)
[2022-12-28] MEDS: HEPARIN SODIUM 1,000 UN/ML (10ML VL) IV PRN ×2 (12:47→21:07)
[2022-12-28 12:50] LABS: Basophils % (A) 0 %; Eosinophils # (A) 0.2 k/uL (0-0.7); Eosinophils % (A) 3 %; HCT 45.7 % (39.0-53.0); HGB 15.2 gm/dL (13.0-17.5); Lymphocytes # (A) 1.9 k/uL (1.0-4.8); Lymphocytes % (A) 24 %; MCH 28.5 pg (25.0-35.0); MCHC 33.2 g/dL (31.0-37.0); Mean Platelet Volume 8.2; Monocytes # (A) 0.5 k/uL (0-1.0); Monocytes % (A) 7 %; Neutrophils % (A) 64 %; Platelet Count 214 k/uL (150-450); RBC 5.31 m/uL (4.30-5.90); RDW 12.7 % (11.5-15.5); WBC 7.8 k/uL (3.8-10.6)
[2022-12-28 12:55] LABS: Partial Thromboplastin Time 24.3 sec (22.0-30.0); Prothrombin Time 10.2 sec (9.0-12.0)
--- NOTE | 2022-12-28 15:27 | P.HPIM ---
History of Present Illness H&P Date: 12/28/22 History of present illness; patient is a 57-year-old gentleman with past medical history significant for coronary artery disease, hypertension, hyperlipidemia who had been noticing increasing shortness of breath and chest pressure on exertion for the last few weeks. Patient states every small activity brings on chest pressure which is central in location, nonradiating, associated with shortness of breath. Denies any palpitations. Denies any complaint of nausea or vomiting. Patient was seen by cardiology outpatient setting and they added M.D. ON increase the dose of metoprolol, patient was scheduled for cardiac cath in the coming week. Because his worsening chest pressure, patient came to the ER Initial lab work done in the ER showed WBC 8.4, hemoglobin 13.9, platelet count 23, sodium 13, potassium 3.7, BUN 21, creatinine 1.13, troponin negative EKG done in the ER showed heart rate 86, QRS 112, no segment depression or elevation seen, no T-wave inversion in leads Chest x-ray done in the ER Patient admitted to medicine service REVIEW OF SYSTEMS: CONSTITUTIONAL: No fever, no malaise, no fatigue. HEENT: No recent visual problems or hearing problems. Denied any sore throat. CARDIOVASCULAR: As mentioned in HPI PULMONARY: As mentioned in HPI GASTROINTESTINAL: No diarrhea, no nausea, no vomiting, no abdominal pain. NEUROLOGICAL: No headaches, no weakness, no numbness. HEMATOLOGICAL: Denies any bleeding or petechiae. GENITOURINARY: Denies any burning micturition, frequency, or urgency. MUSCULOSKELETAL/RHEUMATOLOGICAL: Denies any joint pain, swelling, or any muscle pain. ENDOCRINE: Denies any polyuria or polydipsia. The rest of the 14-point review of systems is negative. PHYSICAL EXAMINATION: GENERAL: The patient is alert and oriented x3, not in any acute distress. Well developed, well nourished. HEENT: Pupils are round and equally reacting to light. EOMI. No scleral icterus. No conjunctival pallor. Normocephalic, atraumatic. No pharyngeal erythema. No thyromegaly. CARDIOVASCULAR: S1 and S2 present. No murmurs, rubs, or gallops. PULMONARY: Chest is clear to auscultation, no wheezing or crackles. ABDOMEN: Soft, nontender, nondistended, normoactive bowel sounds. No palpable organomegaly. MUSCULOSKELETAL: No joint swelling or deformity. EXTREMITIES: No cyanosis, clubbing, or pedal edema. NEUROLOGICAL: Gross neurological examination did not reveal any focal deficits. SKIN: No rashes. Assessment and plan Unstable angina History of Coronary artery disease Hypertension Hyperlipidemia Monitor vital signs Monitor CBC Monitor CMP Continue telemetry monitoring Trend troponin Resume home meds Started patient on IV heparin, cardiology consulted. Labs and medication were reviewed.. Continue same treatment. Continue with symptomatic treatment. Resume home medication. Monitor labs and vitals. DVT and GI prophylaxis. Further recommendations as per clinical course of the patient Dictation was produced using [employer] dictation software. please excuse any grammatical, word or spelling errors. Past Medical History Past Medical History: GERD/Reflux, Myocardial Infarction (NE) Last Myocardial Infarction Date:: october 2017 History of Any Multi-Drug Resistant Organisms: None Reported Past Surgical History: Heart Catheterization With Stent, Hernia Repair, Orthopedic Surgery Additional Past Surgical History / Comment(s): ORIF LEFT MID FINGER. MANDIBULAR RECONSTRUCTION. heart cath with stent in october of 2017 Past Anesthesia/Blood Transfusion Reactions: Motion Sickness Date of Last Stent Placement:: october 2017 Past Psychological History: No Psychological Hx Reported Smoking Status: Never smoker Past Alcohol Use History: Occasional Past Drug Use History: Marijuana - Past Family History Father Family Medical History: Coronary Artery Disease (CAD), Myocardial Infarction (NE) Medications and Allergies Home Medications Medication Instructions Recorded Confirmed Type Cholecalciferol [Vitamin D3 (25 5,000 unit PO DAILY 10/20/17 11/22/17 History Mcg = 1000 Iu)] Aspirin 81 mg PO DAILY #1 chewable 10/23/17 11/22/17 Rx Atorvastatin [Lipitor] 80 mg PO HS #30 tab 10/23/17 11/22/17 Rx Clopidogrel [Plavix] 75 mg PO DAILY #30 tab 10/23/17 11/22/17 Rx Famotidine [Pepcid] 20 mg PO BID #60 tab 10/23/17 11/22/17 Rx Metoprolol Tartrate [Lopressor] 25 mg PO TID #90 tab 10/23/17 11/22/17 Rx Nitroglycerin Sl Tabs [Nitrostat] 0.4 mg SUBLINGUAL Q5M PRN #25 tab 10/23/17 11/22/17 Rx Multivitamin/Iron/Folic Acid 1 tab PO DAILY 11/22/17 11/22/17 History [Centrum Complete Multivit Tab] Allergies Allergy/AdvReac Type Severity Reaction Status Date / Time No Known Allergies Allergy Verified 11/22/17 12:06 Physical Exam Vitals: Vital Signs Temp Pulse Pulse Resp BP BP Pulse Ox 12/28/22 08:33 97 12/28/22 07:00 98 F 75 16 114/72 98 12/28/22 00:00 98.1 F 80 16 126/85 97 12/27/22 23:29 79 14 120/86 95 12/27/22 22:59 85 16 123/92 96 12/27/22 21:39 97.9 F 95 18 138/91 97 FiO2 12/28/22 08:33 21 12/28/22 07:00 12/28/22 00:00 12/27/22 23:29 12/27/22 22:59 12/27/22 21:39 Intake and Output 12/27/22 12/28/22 12/28/22 22:59 06:59 14:59 Other: # Voids 0 Weight 89.811 kg 89.811 kg Results CBC & Chem 7: 12/27/22 22:02 12/27/22 22:02 Labs: Abnormal Lab Results - Last 24 Hours (Table) 12/27/22 Range/Units 22:02 BUN 21 H (9-20) mg/dL Glucose 121 H (74-99) mg/dL
[2022-12-28] MEDS: ATORVASTATIN 80 MG TAB PO SCH (21:08)
[2022-12-29 04:03] LABS: Partial Thromboplastin Time 51.7 sec (22.0-30.0); Prothrombin Time 10.3 sec (9.0-12.0)
[2022-12-29 06:09] LABS: Glucose,Whole Blood 114 mg/dL (70-110)
[2022-12-29] MEDS: METOPROLOL TARTRATE 25 MG TAB PO SCH ×2 (06:32→20:56)
[2022-12-29] MEDS: ASPIRIN 81 MG PO SCH (06:32)
[2022-12-29] MEDS ORDERED: HEPARIN SODIUM,PORCINE 10,000 UNIT in SODIUM CHLORIDE 0.9% 1,000 ML IRRIGATION PRN (07:00)
[2022-12-29] MEDS ORDERED: HEPARIN SODIUM,PORCINE 2,500 UNIT in SODIUM CHLORIDE 0.9% 250 ML IRRIGATION PRN (07:00)
[2022-12-29] MEDS ORDERED: ATORVASTATIN 80 MG TAB PO STA (07:49)
[2022-12-29] MEDS ORDERED: ASPIRIN 325 MG TAB PO STA (07:49)
[2022-12-29] MEDS ORDERED: SODIUM CHLORIDE 0.9% 1,000 ML in EMPTY BAG 1 BAG IV ONE (07:51)
[2022-12-29] MEDS ORDERED: ASPIRIN 81 MG PO STA (08:43)
[2022-12-29] MEDS ORDERED: SODIUM CHLORIDE 0.9% 1,000 ML IV ONE (09:08)
[2022-12-29] MEDS ORDERED: fentaNYL (PF) 50 MCG/1 ML VIAL IVP ONE (09:09)
[2022-12-29] MEDS ORDERED: VERAPAMIL SYRINGE (5 MG/10 ML) INTRAARTER ONE (09:15)
[2022-12-29] MEDS ORDERED: LIDOCAINE 1% INJ 10MG/ML (5 ML VIAL-PF) SQ ONE (09:15)
[2022-12-29] MEDS: HEPARIN SODIUM 1,000 UN/ML (10ML VL) IV ONE ×3 (09:17→10:27)
[2022-12-29 09:22] LABS: Basophils # (A) 0.05 X 10*3/uL (0.00-0.10); Basophils % (A) 0.5 %; Eosinophils # (A) 0.36 X 10*3/uL (0.04-0.35); Eosinophils % (A) 3.9 %; HCT 45.9 % (39.6-50.0); HGB 14.7 d/dL (12.0-15.0); Lymphocytes # (A) 2.98 X 10*3/uL (0.90-5.00); Lymphocytes % (A) 31.9 %; MCH 27.9 pg (27.0-32.0); MCV 87.3 FL (80.0-97.0); Mean Platelet Volume 11.3 FL (9.5-12.2); Monocytes # (A) 0.86 X 10*3/uL (0.20-1.00); Monocytes % (A) 9.2 %; NRBC Per 100 WBC 0 X 10*3/uL (0.00-0.01); Neutrophils # (A) 5.05 X 10*3/uL (1.80-7.70); Neutrophils % (A) 54.1 %; Platelet Count 243 X 10*3/uL (140-440); RBC 5.26 X 10*6/uL (4.40-5.60); RDW 12.5 % (11.5-14.5); WBC 9.34 X 10*3/uL (4.50-10.00)
[2022-12-29] MEDS ORDERED: CLOPIDOGREL 75 MG TAB PO ONE (09:30)
[2022-12-29 09:32] LABS: ALT 33 U/L (10-49); AST 23 U/L (14-35); Albumin 3.7 d/dL (3.8-4.9); Albumin/Globulin Ratio 1.37 Ratio (1.60-3.17); Alkaline Phosphatase 75 U/L (41-126); BUN/Creat Ratio 18.45 Ratio (12.00-20.00); Blood Urea Nitrogen 20.3 mg/dL (9.0-27.0); Calcium 8.5 mg/dL (8.7-10.3); Carbon Dioxide 21.5 mmol/L (21.6-31.8); Chloride 105 mmol/L (96-109); Globulin 2.7 d/dL (1.6-3.3); Glucose 95 mg/dL (70-110); Potassium 4.3 mmol/L (3.5-5.5); Sodium 139 mmol/L (135-145); Total Bilirubin 0.3 mg/dL (0.3-1.2); Total Protein 6.4 d/dL (6.2-8.2)
[2022-12-29] MEDS ORDERED: IOPAMIDOL-370 100ML BTL INJ ONE ×4 (09:33→10:11)
[2022-12-29] MEDS ORDERED: RX INFO: IV CONTRAST WAS GIVEN 1 EACH MISC MISCELLANE PRN (10:28)
[2022-12-29] MEDS ORDERED: ZOLPIDEM 5 MG TAB PO PRN (10:28)
[2022-12-29] MEDS ORDERED: NITROGLYCERIN SL TABS 0.4 MG TAB SUBLINGUAL PRN (10:28)
[2022-12-29] MEDS ORDERED: ATROPINE SULFATE 0.1 MG/ML 10ML SYRINGE IV PRN (10:28)
[2022-12-29] MEDS ORDERED: MAG HYDROX/AL HYDROX/SIMETH 30 ML CUP PO PRN (10:28)
[2022-12-29] MEDS ORDERED: SODIUM CHLORIDE 0.9% 1,000 ML in EMPTY BAG 1 BAG IV SCH (10:30)
--- NOTE | 2022-12-29 10:42 | P.CARDCATH ---
Date of Procedure: 12/29/22 Description of Procedure: Cardiac Catheterization: The patient is a 57-year-old male with a known history of CAD, post PCI in 2018 who presented with symptoms of chest discomfort, he was evaluated by Dr. Brock. Recommendations were made regarding cardiac catheterization, the risks and the complications were discussed with the patient who is in full understanding and agreement. Procedure Description: Patient was brought to tag and label cutter in fasting semi-sedated state after receiving Fentanyl and Benadryl achieiving moderate conscious sedated state. Using Xylocaine Anesthesia and Seldinger technique, a 6-Telugu sheath was introduced in the right radial artery . Subsequently, selective coronary angiography was performed using a 5-Telugu 3.5 bend Yvette catheter. Multiple views of the coronary artery including hemiaxial views were obtained. The right Yvette catheter was used to cross the aortic v alve and LVEDP was calculated. PCI: After removing the catheters 6-Telugu sheath 3.75 EBU guiding catheter was introduced into system, after cannulating the left main a 0.014 BMW J-wire was introduced in the first diagonal branch and a second wire in the LAD and positioned in the distal LAD. Subsequently a 2.5 x 12 mm Treck was advanced and one inflation in the diagonal branch at 8 momo was done, after removing the balloon a [employer] intravascular ultrasound catheter was introduced in the LAD and the diagonal Branch. Subsequently a 2.5 x 15 Xience trish point stent was positioned in the diagonal branch and deployed at 14 momo. Repeat intravascular ultrasound in the LAD and diagonal branch were done, subsequently a 2.75 x 12 mm NC Treck was advanced in the back branch and one inflation at 10 momo was done. After removing the wire images were obtained and revealed stable successful stenting at that time the wire was advanced circumflex position the distal OM. Repeat intravascular ultrasound images were done and subsequently the 2.5 x 12 mm NC balloon was advanced and inflations were done at 10 momo. After removing the balloon 3.25 x 18 Xience trish point stent was deployed at 16 momo. Images were obtained after removing the wire revealed stable successful stenting Following that, catheter and sheath were removed. Hemostasis was obtained with deployment of TR band . There was no immediate complication. Patient was returned to room in stable condition. Of note, the patient received a total of 7500 units of intravenous heparin as well as intra-arterial verapamil. He received an oral loading dose of clopidogrel. He had no chest discomfort or significant EKG changes inflations. His ACT was monitored. Findings: Left main: This is a short sized vessel, bifurcating into LAD and left circumflex, left main has no obstructive disease LAD: This is a large size vessel, reaching to the apex, giving rise to a large proximal diagonal branch. The diagonal branch has 99% stenosis at the ostium, the proximal has 20% plaque. The rest of the vessel has no high-grade stenosis. Left circumflex: This is a large nondominant vessel, giving rise to a large obtuse marginal branch. The stented segment in the left circumflex prior to the takeoff of the OM branch in the proximal edge has an 80% stenosis. RCA: This is a dominant vessel, bifurcating distally to PDA and PLV, tortuous in the proximal and midsegment. The right coronary artery has 20% plaque in the midsegment without any high-grade stenosis Left Ventriculogram: Not performed Hemodynamics: There was no gradient across the aortic valve , LVEDP was 20-24 mmHg Conclusion: 1. Severe stenosis in the first diagonal branch 2. Severe stenosis in the proximal left circumflex 3. Mild disease in the RCA and proximal LAD 4. Successful stenting of the first diagonal branch with reduction of stenosis from 90% less than 5% with intravascular ultrasound imaging 5. Successful stenting of the proximal left circumflex with reduction in stenosis and 80% to 0% with intravascular ultrasound imaging Recommendations: The patient will continue on aspirin and Plavix without any disruption to aggressive coronary risks modifications. The findings and the recommendations were discussed with the patient and the family and they were in full understanding and agreement. Duration of sedation is 62 minutes.
[2022-12-29] MEDS ORDERED: BENZOCAINE/MENTHOL LOZENG 1 EACH LOZENGE MUCOUS MEM PRN (14:52)
[2022-12-29] MEDS: ATORVASTATIN 80 MG TAB PO SCH (20:55)
--- NOTE | 2022-12-30 06:29 | P.PN ---
Subjective Progress Note Date: 12/29/22 History of present illness; patient is a 57-year-old gentleman with past medical history significant for coronary artery disease, hypertension, hyperlipidemia who had been noticing increasing shortness of breath and chest pressure on exertion for the last few weeks. Patient states every small activity brings on chest pressure which is central in location, nonradiating, associated with shortness of breath. Denies any palpitations. Denies any complaint of nausea or vomiting. Patient was seen by cardiology outpatient setting and they added M.D. ON increase the dose of metoprolol, patient was scheduled for cardiac cath in the coming week. Because his worsening chest pressure, patient came to the ER Initial lab work done in the ER showed WBC 8.4, hemoglobin 13.9, platelet count 23, sodium 13, potassium 3.7, BUN 21, creatinine 1.13, troponin negative EKG done in the ER showed heart rate 86, QRS 112, no segment depression or elevation seen, no T-wave inversion in leads Chest x-ray done in the ER Patient admitted to medicine service 12/29/2022 Patient is seen and evaluated in follow-up today underwent cardiac catheterization today and required stenting to the first diagonal branch as well as proximal left circumflex and currently on bedrest protocol and right wrist insertion. Patient is afebrile with no reports of further chest pain or shortness of breath. Patient is reporting some throat hoarseness likely from the procedure Will add Cepacol as needed. Recommend continue telemetry monitoring overnight and will discuss further with cardiology about possible discharge planning in the next 24-48 hours. Review of systems: Constitutional: No reports of fatigue, fever, or chills Cardiovascular: No reports of chest pain or palpitations Respiratory: No reports of shortness of breath or cough GI: No reports of nausea, vomiting, or diarrhea : No reports of dysuria or retention Neurovascular: No reports of weakness or numbness All medications have been reviewed PHYSICAL EXAMINATION: GENERAL: The patient is alert and oriented x3, not in any acute distress. Well developed, well nourished. HEENT: Pupils are round and equally reacting to light. EOMI. No scleral icterus. No conjunctival pallor. Normocephalic, atraumatic. No pharyngeal erythema. No thyromegaly. CARDIOVASCULAR: S1 and S2 present. No murmurs, rubs, or gallops. PULMONARY: Chest is clear to auscultation, no wheezing or crackles. ABDOMEN: Soft, nontender, nondistended, normoactive bowel sounds. No palpable organomegaly. MUSCULOSKELETAL: No joint swelling or deformity. EXTREMITIES: No cyanosis, clubbing, or pedal edema. Right wrist band noted post cardiac catheterization with no bleeding or swelling noted around it NEUROLOGICAL: Gross neurological examination did not reveal any focal deficits. SKIN: No rashes. Assessment: Unstable angina Status post PCI stenting to the first diagonal branch as well as left proximal circumflex History of Coronary artery disease Hypertension Hyperlipidemia GI prophylaxis DVT prophylaxis Full code Plan: Recommend continue with bedrest protocol post cardiac catheterization and continue telemetry monitoring Patient is post cardiac catheterization with 2 stents and will be continued on aspirin and Plavix indefinitely per cardiology with close outpatient follow-up Continue current medications as prescribed Recommend continue telemetry monitoring overnight with probable discharge in 24 hours Encouraged increased activity as tolerated The impression and plan of care has been dictated by Ivette Vines, Nurse Practitioner as directed. Dr. Salo MD I have performed a history and examination and MDM of this patient, discussed the same with the dictator, and agree with the dictator's assessment and plan as written ,documented as a scribe. Based on total visit time, I have performed more than 50% of the visit. Objective - Vital Signs Vital signs: Vital Signs Temp 97.9 F 12/29/22 07:00 Pulse 74 12/29/22 07:00 Resp 15 12/29/22 07:00 BP 117/85 12/29/22 07:00 Pulse Ox 97 12/29/22 07:00 FiO2 21 12/28/22 08:33 Intake & Output 12/28/22 12/29/22 12/29/22 18:59 06:59 18:59 Intake Total 171.267 300 Balance 171.267 300 Intake: IV 300 Intake, IV Titration 171.267 Amount Heparin Sod,Pork in 0.45% 171.267 NaCl 25,000 unit In 0.45 % NaCl 1 250ml.bag @ 11. 134 UNITS/KG/HR 10 mls/hr IV .Q24H ELIANA Rx#: [id number] Other: # Voids 3 1 - Labs CBC & Chem 7: 12/29/22 03:07 12/29/22 03:06 Labs: Abnormal Lab Results - Last 24 Hours (Table) 12/28/22 12/29/22 12/29/22 Range/Units 18:28 03:06 03:07 Eosinophils # 0.36 H (0.04-0.35) X 10*3/uL APTT 36.6 H (22.0-30.0) sec Carbon Dioxide 21.5 L (21.6-31.8) mmol/L Anion Gap 12.50 H (4.00-12.00) mmol/L POC Glucose (mg/dL) (70-110) mg/dL Calcium 8.5 L (8.7-10.3) mg/dL Albumin 3.7 L (3.8-4.9) d/dL Albumin/Globulin Ratio 1.37 L (1.60-3.17) Ratio 12/29/22 12/29/22 Range/Units 03:07 06:07 Eosinophils # (0.04-0.35) X 10*3/uL APTT 51.7 H (22.0-30.0) sec Carbon Dioxide (21.6-31.8) mmol/L Anion Gap (4.00-12.00) mmol/L POC Glucose (mg/dL) 114 H (70-110) mg/dL Calcium (8.7-10.3) mg/dL Albumin (3.8-4.9) d/dL Albumin/Globulin Ratio (1.60-3.17) Ratio
[2022-12-30 07:04] LABS: African American GFR (CKD) 89 (>60 ml/min/1.73 sqM); Anion Gap 7 mmol/L; Blood Urea Nitrogen 16 mg/dL (9-20); Calcium 8.4 mg/dL (8.4-10.2); Carbon Dioxide 24 mmol/L (22-30); Chloride 105 mmol/L (98-107); Glucose 88 mg/dL (74-99); Non-African American GFR(CKD) 77 (>60 ml/min/1.73 sqM); Potassium 4.1 mmol/L (3.5-5.1); Sodium 136 mmol/L (137-145)
[2022-12-30] MEDS ORDERED: CLOPIDOGREL 75 MG TAB PO SCH (09:00)
[2022-12-30] MEDS ORDERED: ASPIRIN 81 MG PO SCH (09:00)
--- NOTE | 2022-12-30 09:44 | P.PN ---
Subjective Progress Note Date: 12/30/22 HISTORY OF PRESENTING ILLNESS This is a pleasant 57-year-old with past medical history significant for With history of GERD, myocardial infarction with PCI 2018, hyperlipidemia. He follows in the office with Dr Law. Over last 3 weeks he has been noticing increased episodes of chest pressure and throat tightness which normally occurs with any exertion and improved with rest. He saw Dr. Law and was increased on the metoprolol and added Imdur and scheduled for heart catheterization this upcoming week. Unfortunately yesterday he had an episode while he was sitting and not doing anything and more significant sensation in the center of his chest felt similar to his prior RI and therefore presented to the ER. Symptoms improved in the ER. EKG showed mild ST depressions in the inferior and lateral leads. 12/30 Patient underwent cardiac catheterization yesterday with Dr. Law which revealed severe stenosis of the first diagonal branch, severe stenosis in the proximal left circumflex, mild disease in the RCA and proximal LAD. Patient underwent successful stenting of the first diagonal branch and the proximal left circumflex. Patient denies having any chest pain or shortness of breath this morning. He states he is ambulatory to the hallway without any difficulty. EKG reviewed is unchanged from previous. Blood pressure 106/70, heart rate in the 70s to 90s. PHYSICAL EXAMINATION Vital signs reviewed. CONSTITUTIONAL: No apparent distress. HEENT: Head is normocephalic. Pupils are equal, round. Sclerae anicteric. Mucous membranes of the mouth are moist. No JVD. No carotid bruit. CHEST EXAMINATION: Lungs are clear to auscultation. No chest wall tenderness is noted on palpation or with deep breathing. HEART EXAMINATION: Regular rate and rhythm. S1, S2 heard. No murmurs, gallops or rub. ABDOMEN: Soft, nontender. Positive bowel sounds. EXTREMITIES: 2+ peripheral pulses, no lower extremity edema and no calf tenderness. NEUROLOGIC EXAMINATION: Patient is awake, alert and oriented x3. ASSESSMENT Unstable angina CAD with prior history of PCI Hyperlipidemia Hypertension PLAN Continue patient's current medications. He has been started on Plavix and aspirin, prescribed for Plavix has been sent to his pharmacy Patient is cleared for discharge by follow-up in the office with Dr. Law upon week Nurse practitioner note has been reviewed, I agree with the documented findings and plan of care. Patient was seen and examined. Objective - Vital Signs Vital signs: Vital Signs Temp 98.6 F 12/30/22 02:00 Pulse 79 12/30/22 02:00 Resp 15 12/30/22 02:00 BP 106/70 12/30/22 02:00 Pulse Ox 99 12/30/22 02:00 FiO2 21 12/28/22 08:33 Intake & Output 12/29/22 12/30/22 12/30/22 18:59 06:59 18:59 Intake Total 300 Balance 300 Intake: IV 300 Other: # Voids 2 2 - Labs CBC & Chem 7: 12/29/22 03:07 12/30/22 05:24 Labs: Abnormal Lab Results - Last 24 Hours (Table) 12/29/22 12/29/22 12/30/22 Range/Units 03:06 03:07 05:24 Eosinophils # 0.36 H (0.04-0.35) X 10*3/uL Sodium 136 L (137-145) mmol/L Carbon Dioxide 21.5 L (21.6-31.8) mmol/L Anion Gap 12.50 H (4.00-12.00) mmol/L Calcium 8.5 L (8.7-10.3) mg/dL Albumin 3.7 L (3.8-4.9) d/dL Albumin/Globulin Ratio 1.37 L (1.60-3.17) Ratio
[2022-12-30] MEDS: METOPROLOL TARTRATE 25 MG TAB PO SCH (10:02)
[2022-12-30 10:03] VITALS: BP 127/80; PULSE 82; RESP 16; TEMP 98.3
[2022-12-30 10:44] VITALS: BMI 27.6
--- NOTE | 2022-12-31 15:37 | P.DS ---
Providers Date of admission: 12/29/22 16:17 Expected date of discharge: 12/30/22 Attending physician: Scar Gonzáles MD Consults: 12/27/22 23:03 Consult Physician Routine Consulting Provider: Tina Law Consult Reason/Comments: CP Do you want consulting provider notified?: Yes 12/29/22 10:28 Consult Physician Routine Consulting Provider: [facility] Consult Reason/Comments: Post Interventional patient Do you want consulting provider notified?: Already Contacted Primary care physician: Davis Cabrera [facility] Course: Final diagnosis Unstable angina Status post PCI stenting to the first diagonal branch as well as left proximal circumflex History of Coronary artery disease Hypertension Hyperlipidemia GI prophylaxis DVT prophylaxis Full code Discharge disposition Patient is being discharged in a stable condition with guarded prognosis to home. Patient will follow-up with Dr. Cabrera in the outpatient setting upon discharge. Patient is to continue with current medications as prescribed below and close outpatient follow-up with cardiology as scheduled. Total time taken is greater than 35 minutes. Hospital course This is a 57-year-old male who was recently admitted with chest pain, possible unstable angina with negative troponins. Patient underwent cardiac catheterization with cardiology following closely and is status post PCI st enting to the first diagonal branch as well as left proximal circumflex. Patient was monitored overnight on telemetry monitoring with no issues noted. Patient has been cleared by cardiology. Please refer to cardiology notes for further HPI. Patient reports to feeling like to go home. Currently no reports of chest pain, shortness of breath, or palpitations. Patient is afebrile. No reports of nausea or vomiting and patient is tolerating diet. Patient will be discharged home today. Physical exam: Gen: This is a 57-year-old male who is awake, alert and oriented 3 HEENT: Head is atraumatic, normocephalic. Pupils equal, round. Sclerae is anicteric. NECK: Supple. No JVD. No lymphadenopathy. No thyromegaly. LUNGS: Clear to auscultation. No wheezes or rhonchi. No intercostal retractio ns. HEART: Regular rate and rhythm. No murmur. ABDOMEN: Soft. Bowel sounds are present. No masses. No tenderness. EXTREMITIES: No pedal edema. No calf tenderness. NEUROLOGICAL: Patient is awake, alert and oriented x3. Cranial nerves 2 through 12 are grossly intact. Please refer to medication reconciliation sheet for a list of medications. The impression and plan of care has been dictated by Ivette Vines, Nurse Practitioner as directed. Dr. Salo MD I have performed a history and examination and MDM of this patient, discussed the same with the dictator, and agree with the dictator's assessment and plan as written ,documented as a scribe. Based on total visit time, I have performed more than 50% of the visit. Patient Condition at Discharge: Stable Plan - Discharge Summary New Discharge Prescriptions: New Aspirin 81 mg PO DAILY tab Clopidogrel [Plavix] 75 mg PO DAILY #90 tab Continue Atorvastatin [Lipitor] 80 mg PO HS #30 tab Metoprolol Tartrate [Lopressor] 50 mg PO BID Discontinued Isosorbide Mononitrate ER [Imdur] 30 mg PO DAILY Discharge Medication List Atorvastatin [Lipitor] 80 mg PO HS #30 tab 10/23/17 [Rx] Metoprolol Tartrate [Lopressor] 50 mg PO BID 12/28/22 [History] Aspirin 81 mg PO DAILY tab 12/30/22 [Rx] Clopidogrel [Plavix] 75 mg PO DAILY #90 tab 12/30/22 [Rx] Follow up Appointment(s)/Referral(s): Tina Lwa MD [STAFF PHYSICIAN] - 01/07/23 9:15 am Davis Cabrera DO [Primary Care Provider] - 1-2 days Activity/Diet/Wound Care/Special Instructions: Activity Limited until follow-up Follow-up with primary care provider on discharge Continue taking medications as prescribed Follow-up with cardiology in one week Continue heart healthy diet NO FLEXING AT THE WRIST OR LIFTING ANYTHING HEAVIER THAN 5 POUNDS FOR 5 DAYS DO NOT SUBMERGE SITE IN WATER FOR 3 DAYS IF SITE BLEEDS, HOLD PRESSURE FOR 10 MIN AND IF DOESN'T SUBSIDE THEN HAVE SOMEONE DRIVE YOU TO ER REFER TO S/SX OF INFECTION HANDOUT Discharge Disposition: HOME SELF-CARE
== END 2022-12-30 11:55 | disposition home or self-care (01) | DRG 247 ==
LOC: EC 21:36 → 6NMEDSUR 23:03 → OBSVTOIN 12-29 16:17
PROVIDERS: ADMIT Internal Medicine; ATTEND Internal Medicine
PROC: B241ZZ3 Ultrasonography of Multiple Coronary Arteries, Intravascular (ICD-10-PCS; principal; 2022-12-29 10:30)
PROC: 4A023N7 Measurement of Cardiac Sampling and Pressure, Left Heart, Percutaneous Approach (ICD-10-PCS; principal; 2022-12-29 10:30)
PROC: 027135Z Dilation of Coronary Artery, Two Arteries with Two Drug-eluting Intraluminal Devices, Percutaneous Approach (ICD-10-PCS; principal; 2022-12-29 10:30)
PROC: B2111ZZ Fluoroscopy of Multiple Coronary Arteries using Low Osmolar Contrast (ICD-10-PCS; principal; 2022-12-29 10:30)
DX: I25.110 Atherosclerotic heart disease of native coronary artery with unstable angina pectoris (principal); K21.9 Gastro-esophageal reflux disease without esophagitis; I10 Essential (primary) hypertension; E78.5 Hyperlipidemia, unspecified; I25.2 Old myocardial infarction; Z95.5 Presence of coronary angioplasty implant and graft; Z79.899 Other long term (current) drug therapy; Z79.82 Long term (current) use of aspirin; Z79.02 Long term (current) use of antithrombotics/antiplatelets
CPT/HCPCS: 36415; 71046; 80048; 80053; 83735; 84484; 85025; 85610; 85730; 92978; 92979; 93005; 93458; 94760; 99285

== ENCOUNTER 2023-03-05 18:04 | Inpatient (IN) | payer BC ==
--- NOTE | 2023-03-05 18:12 | ED ---
General Adult HPI - General Source: patient, RN notes reviewed Mode of arrival: ambulatory Limitations: no limitations - History of Present Illness MD Complaint: Sore throat, dyspnea <Adriana Freitas - Last Filed: 03/05/23 18:10> <Eliazar Deng - Last Filed: 03/05/23 19:49> - General Chief complaint: Chest Pain Stated complaint: Sore Throat, Stents placed end of December Time Seen by Provider: 03/05/23 18:09 - History of Present Illness Initial comments: This is a 57 year old male who presents to the emergency department for a sore throat and cardiac concerns. Reports having a heart attack 7 years ago, and his primary symptom at that time was a sore throat. He required a stent at that time. In December, he had left sided chest tightness and a sore throat, he had a car diac catheterization and required another stent. States that over the last few days he has had increasing fatigue and dyspnea with exertion. Yesterday, he again started to notice the same sore throat. Denies any symptoms sitting still. (Adriana Freitas) Patient originally seen as a quick note. Presents for what he describes as a sore throat but is really upper chest pain. States he has had over the last 2 days with mild increased exertion. It is not present when at rest. Currently is asymptomatic. States his are identical features to when he had prior MIs requiring stents. Presents due to this as he does not want to wait for it to get worse that is the case. Denies any current symptoms. Denies any shortness of breath. Has no fevers, chills, cough. Denies any nausea, vomiting, abdominal pain. Denies any other acute complaints at this time. The states he has noticed some increased fatigue as well recently. He is concerned regarding his heart. (Eliazar Deng) - Related Data Home Medications Medication Instructions Recorded Confirmed Metoprolol Tartrate [Lopressor] 50 mg PO BID 12/28/22 12/28/22 Previous Rx's Medication Instructions Recorded Atorvastatin [Lipitor] 80 mg PO HS #30 tab 10/23/17 Aspirin 81 mg PO DAILY tab 12/30/22 Clopidogrel [Plavix] 75 mg PO DAILY #90 tab 12/30/22 Allergies Allergy/AdvReac Type Severity Reaction Status Date / Time No Known Allergies Allergy Verified 12/28/22 13:01 Review of Systems ROS Other: All systems not noted in ROS Statement are negative. <Adriana Freitas - Last Filed: 03/05/23 18:10> ROS Other: All systems not noted in ROS Statement are negative. <Eliazar Deng - Last Filed: 03/05/23 19:49> ROS Statement: Those systems with pertinent positive or pertinent negative responses have been documented in the HPI. Review of Systems: CONST: Denies fever EYES: Denies blurry vision ENT: Denies nasal congestion C/V: Denies Chest pain RESP: Denies shortness of breath GI: Denies abdominal pain : Denies dysuria SKIN: Denies rash. MSK: Denies joint pain. NEURO: Denies headache (Eliazar Deng) Past Medical History Past Medical History: GERD/Reflux, Hyperlipidemia, Hypertension, Myocardial Infarction ([place]) Last Myocardial Infarction Date:: october 2017 History of Any Multi-Drug Resistant Organisms: None Reported Past Surgical History: Heart Catheterization With Stent, Hernia Repair, Orthopedic Surgery Additional Past Surgical History / Comment(s): ORIF LEFT MID FINGER. MANDIBULAR RECONSTRUCTION. heart cath with stent in october of 2017 Past Anesthesia/Blood Transfusion Reactions: Motion Sickness Date of Last Stent Placement:: october 2017 Past Psychological History: No Psychological Hx Reported Smoking Status: Never smoker Past Alcohol Use History: Occasional Past Drug Use History: Marijuana - Past Family History Father Family Medical History: Coronary Artery Disease (CAD), Myocardial Infarction ([place]) <Adriana Freitas - Last Filed: 03/05/23 18:10> General Exam Limitations: no limitations <Adriana Freitas - Last Filed: 03/05/23 18:10> <Eliazar Deng - Last Filed: 03/05/23 19:49> - General Exam Comments Initial Comments: Visual Physical Exam Vital signs reviewed General: Well-appearing, nontoxic, no acute distress. Head: Normocephalic, atraumatic Eyes: PERRLA, EOMI ENT: Airway patent Chest: Nonlabored breathing Skin: No visual rash, normal skin tone Neuro: Alert and oriented 3 Musculoskeletal: No gross abnormalities I performed the QuickNote portion of this chart. Signed Adriana Freitas PA-C. (Adriana Freitas) General: Appears in no acute distress. HEAD: Normal with no signs of head trauma. EYES: PERRLA, EOMI, conjunctiva normal, no discharge. ENT: Hearing grossly intact, normal oropharynx. RESPIRATORY: Clear breath sounds bilaterally. No wheezes, rales, or rhonchi. C/V: Regular rate and rhythm. S1 and S2 auscultated, no edema, peripheral pulses 2+ and intact throughout ABD: Abd is soft, nontender, nondistended EXT: Normal range of motion, no obvious deformity SKIN: No rashes or lesions observed on exposed skin. NEURO: Alert and oriented 4. (Eliazar Deng) Course Vital Signs 03/05/23 03/05/23 03/05/23 18:07 18:52 19:00 Temperature 98 F Pulse Rate 78 72 73 Respiratory 16 16 16 Rate Blood Pressure 145/104 102/82 136/102 O2 Sat by Pulse 98 97 97 Oximetry Medical Decision Making - Lab Data Result diagrams: 03/05/23 18:09 03/05/23 18:09 - EKG Data -: EKG Interpreted by Me <Eliazar Deng - Last Filed: 03/05/23 19:49> - Medical Decision Making Was pt. sent in by a medical professional or institution (, PA, COOPERATIVE MANAGER, urgent care, hospital, or [facility]...) When possible be specific @ -No Did you speak to anyone other than the patient for history (EMS, parent, family, police, friend...)? What history was obtained from this source @ -Spoke with Dr. chavis who accepted the admission. Did you review nursing and triage notes (agree or disagree)? Why? @ -I reviewed and agree with nursing and triage notes Were old charts reviewed (outside hosp., previous admission, EMS record, old EKG, old radiological studies, urgent care reports/EKG's, [facility] records)? Report findings @ -Old charts reviewed. Differential Diagnosis (chest pain, altered mental status, abdominal pain women, abdominal pain men, vaginal bleeding, weakness, fever, dyspnea, syncope, headache, dizziness, GI bleed, back pain, seizure, CVA, palpatations, mental health, musculoskeletal)? @ -Differential Chest Pain: Stable Angina, Unstable Angina, STEMI, NSTEMI Aortic Dissection, Pneumothorax, Musculoskeletal, Esophageal Spasm GERD, Cholecystitis, Pancreatitis, Zoster, this is not meant to be an all-inclusive list. EKG interpreted by me (3pts min.). @ -As above X-rays interpreted by me (1pt min.). @ -Chest x-ray reveals no obvious acute cardiopulmonary process. CT interpreted by me (1pt min.). @ -None done U/S interpreted by me (1pt. min.). @ -None done What testing was considered but not performed or refused? (CT, X-rays, U/S, labs)? Why? @ -None What meds were considered but not given or refused? Why? @ -None Did you discuss the management of the patient with other professionals (professionals i.e. Dr., PA, COOPERATIVE MANAGER, lab, RT, psych nurse, geriatric social work professor, carpenter mate, teacher, correction officer penitentiary, case worker)? Give summary @ -No Was smoking cessation discussed for >3mins.? @ -No Was critical care preformed (if so, how long)? @ -No Were there social determinants of health that impacted care today? How? (Homelessness, low income, unemployed, alcoholism, drug addiction, transportation, low edu. Level, literacy, decrease access to med. care, detention, rehab)? @ -No Was there de-escalation of care discussed even if they declined (Discuss DNR or withdrawal of care, Hospice)? DNR status @ -No What co-morbidities impacted this encounter? (DM, HTN, Smoking, COPD, CAD, Cancer, CVA, ARF, Chemo, Hep., AIDS, mental health diagnosis, sleep apnea, morbid obesity)? @ -None Was patient admitted / discharged? Hospital course, mention meds given and route, prescriptions, significant lab abnormalities, going to OR and other pertinent info. @ -Based on the patient's presentation and physical exam, I'm concerned for cardiac etiology for his current pain. Workup started in triage note. This included cardiac workup. He was completely by the time I evaluated the patient. EKG showed no evidence of acute ischemia. Labs revealed undetectable troponin. Remainder of the labs within normal limits. Chest x-ray unremarkable. Vital signs within acceptable limits. Patient was given 324 mg aspirin. I added on viral swabs. I discussed the results with the patient. Patient has a moderate heart score at 4. Discussed with the patient and we will admit him to cardiac observation. He was in agreement this plan. He remains asymptomatic at this time. Cardiology consulted. I spoke with the admitting physician, Dr. Chavis who accepted the patient. Echo ordered. Undiagnosed new problem with uncertain prognosis? @ -No Drug Therapy requiring intensive monitoring for toxicity (Heparin, Nitro, Insulin, Cardizem)? @ -No Were any procedures done? @ -No Diagnosis/symptom? @ -Chest pain Acute, or Chronic, or Acute on Chronic? @ -Acute Uncomplicated (without systemic symptoms) or Complicated (systemic symptoms)? @ -Uncomplicated Side effects of treatment? @ -No Exacerbation, Progression, or Severe Exacerbation? @ -No Poses a threat to life or bodily function? How? (Chest pain, [place], [place], pneumonia, PE, COPD, DKA, ARF, appy, cholecystitis, CVA, Diverticulitis, Homicidal, Suicidal, threat to staff... and all critical care pts) @ -yes (Eliazar Deng) - Lab Data Lab Results 03/05/23 03/05/23 03/05/23 Range/Units 18:09 18:09 18:09 WBC 7.3 (3.8-10.6) k/uL RBC 5.17 (4.30-5.90) m/uL Hgb 15.0 (13.0-17.5) gm/dL Hct 44.9 (39.0-53.0) % MCV 86.8 (80.0-100.0) fL MCH 29.0 (25.0-35.0) pg MCHC 33.4 (31.0-37.0) g/dL RDW 13.0 (11.5-15.5) % Plt Count 200 (150-450) k/uL MPV 7.4 Neutrophils % 60 % Lymphocytes % 26 % Monocytes % 8 % Eosinophils % 3 % Basophils % 0 % Neutrophils # 4.4 (1.3-7.7) k/uL Lymphocytes # 1.9 (1.0-4.8) k/uL Monocytes # 0.6 (0-1.0) k/uL Eosinophils # 0.2 (0-0.7) k/uL Basophils # 0.0 (0-0.2) k/uL PT 10.2 (9.0-12.0) sec INR 1.0 (<1.2) APTT 24.6 (22.0-30.0) sec Sodium 139 (137-145) mmol/L Potassium 4.3 (3.5-5.1) mmol/L Chloride 104 (98-107) mmol/L Carbon Dioxide 28 (22-30) mmol/L Anion Gap 7 mmol/L BUN 18 (9-20) mg/dL Creatinine 1.16 (0.66-1.25) mg/dL Est GFR (CKD-EPI)AfAm 81 (>60 ml/min/1.73 sqM) Est GFR (CKD-EPI)NonAf 70 (>60 ml/min/1.73 sqM) Glucose 82 (74-99) mg/dL Calcium 9.2 (8.4-10.2) mg/dL Magnesium 2.2 (1.6-2.3) mg/dL Total Bilirubin 0.7 (0.2-1.3) mg/dL AST 35 (17-59) U/L ALT 54 H (4-49) U/L Alkaline Phosphatase 80 (38-126) U/L Troponin I (0.000-0.034) ng/mL Total Protein 7.8 (6.3-8.2) g/dL Albumin 4.3 (3.5-5.0) g/dL 03/05/23 Range/Units 18:09 WBC (3.8-10.6) k/uL RBC (4.30-5.90) m/uL Hgb (13.0-17.5) gm/dL Hct (39.0-53.0) % MCV (80.0-100.0) fL MCH (25.0-35.0) pg MCHC (31.0-37.0) g/dL RDW (11.5-15.5) % Plt Count (150-450) k/uL MPV Neutrophils % % Lymphocytes % % Monocytes % % Eosinophils % % Basophils % % Neutrophils # (1.3-7.7) k/uL Lymphocytes # (1.0-4.8) k/uL Monocytes # (0-1.0) k/uL Eosinophils # (0-0.7) k/uL Basophils # (0-0.2) k/uL PT (9.0-12.0) sec INR (<1.2) APTT (22.0-30.0) sec Sodium (137-145) mmol/L Potassium (3.5-5.1) mmol/L Chloride (98-107) mmol/L Carbon Dioxide (22-30) mmol/L Anion Gap mmol/L BUN (9-20) mg/dL Creatinine (0.66-1.25) mg/dL Est GFR (CKD-EPI)AfAm (>60 ml/min/1.73 sqM) Est GFR (CKD-EPI)NonAf (>60 ml/min/1.73 sqM) Glucose (74-99) mg/dL Calcium (8.4-10.2) mg/dL Magnesium (1.6-2.3) mg/dL Total Bilirubin (0.2-1.3) mg/dL AST (17-59) U/L ALT (4-49) U/L Alkaline Phosphatase (38-126) U/L Troponin I <0.012 (0.000-0.034) ng/mL Total Protein (6.3-8.2) g/dL Albumin (3.5-5.0) g/dL - EKG Data EKG Comments: 12-lead Electrocardiogram Interpretation Note EKG was reviewed and interpreted by myself. 12-lead ECG performed at 1835 is interpreted by me as revealing normal sinus rhythm at a rate of 69 beats per minute. Riley is normal. [place] interval is 170 ms, QRS duration is 113 ms, QTc is 403 ms. Chronic T-wave inversion seen in leads III and aVF.. There were no ST or T wave abnormalities to suggest myocardial ischemia or injury. R wave progression across the precordium was satisfactory. By my interpretation this EKG is non-diagnostic for acute ischemia. (Eliazar Deng) Disposition <Adriana Freitas - Last Filed: 03/05/23 18:10> Time of Disposition: 19:31 <Eliazar Deng - Last Filed: 03/05/23 19:49> Clinical Impression: Chest pain Disposition: ADMITTED IP TO THIS HOSP Condition: Stable Referrals: Davis Cabrera DO [Primary Care Provider] - 1-2 days
--- NOTE | 2023-03-05 18:36 | XR ---
EXAMINATION TYPE: XR chest 2V DATE OF EXAM: 03/05/2023 COMPARISON: 12/27/22 HISTORY: Shortness of breath TECHNIQUE: Frontal and lateral views of the chest are obtained. FINDINGS: Scattered senescent parenchymal changes noted. Hyperinflation compatible with COPD. No evidence for infiltrate. No evidence for atelectasis. Heart size is stable. Mediastinal structures are stable and grossly unremarkable. No evidence for hilar prominence. Degenerative changes dorsal spine. IMPRESSION: 1. No evidence for acute pulmonary disease.
[2023-03-05 18:48] LABS: Basophils % (A) 0 %; Eosinophils # (A) 0.2 k/uL (0-0.7); Eosinophils % (A) 3 %; HCT 44.9 % (39.0-53.0); Lymphocytes # (A) 1.9 k/uL (1.0-4.8); Lymphocytes % (A) 26 %; MCHC 33.4 g/dL (31.0-37.0); MCV 86.8 fL (80.0-100.0); Mean Platelet Volume 7.4; Monocytes # (A) 0.6 k/uL (0-1.0); Monocytes % (A) 8 %; Neutrophils # (A) 4.4 k/uL (1.3-7.7); Neutrophils % (A) 60 %; Platelet Count 200 k/uL (150-450); RBC 5.17 m/uL (4.30-5.90); WBC 7.3 k/uL (3.8-10.6)
[2023-03-05 18:51] LABS: ALT 54 U/L (4-49); AST 35 U/L (17-59); African American GFR (CKD) 81 (>60 ml/min/1.73 sqM); Albumin 4.3 g/dL (3.5-5.0); Alkaline Phosphatase 80 U/L (38-126); Anion Gap 7 mmol/L; Blood Urea Nitrogen 18 mg/dL (9-20); Calcium 9.2 mg/dL (8.4-10.2); Carbon Dioxide 28 mmol/L (22-30); Chloride 104 mmol/L (98-107); Glucose 82 mg/dL (74-99); Magnesium 2.2 mg/dL (1.6-2.3); Non-African American GFR(CKD) 70 (>60 ml/min/1.73 sqM); Potassium 4.3 mmol/L (3.5-5.1); Sodium 139 mmol/L (137-145); Total Bilirubin 0.7 mg/dL (0.2-1.3); Total Protein 7.8 g/dL (6.3-8.2)
[2023-03-05 18:59] LABS: Partial Thromboplastin Time 24.6 sec (22.0-30.0); Prothrombin Time 10.2 sec (9.0-12.0)
[2023-03-05] MEDS ORDERED: ASPIRIN 81 MG PO STA (19:16)
[2023-03-05] MEDS ORDERED: NALOXONE 0.4 MG/ML 1 ML VIAL IV PRN (19:36)
[2023-03-05] MEDS: ASPIRIN 81 MG PO SCH (21:21)
[2023-03-05] MEDS: ATORVASTATIN 80 MG TAB PO SCH (21:22)
[2023-03-05] MEDS: METOPROLOL TARTRATE 50 MG TAB PO SCH (21:22)
[2023-03-05] MEDS: HEPARIN SODIUM,PORCINE 5,000 UNIT/ML 1 ML VIAL SQ SCH (22:47)
[2023-03-06] MEDS ORDERED: HEPARIN SODIUM 1,000 UN/ML (10ML VL) IV ONE (09:14)
[2023-03-06] MEDS ORDERED: HEPARIN SODIUM 1,000 UN/ML (10ML VL) IV PRN (09:14)
[2023-03-06] MEDS ORDERED: HEPARIN SOD,PORK IN 0.45% NACL 25,000 UNIT in 0.45% NACL 1 250ML.BAG IV SCH (09:15)
[2023-03-06] MEDS ORDERED: ALPRAZolam 0.5 MG TAB PO PRN (09:18)
[2023-03-06] MEDS ORDERED: NITROGLYCERIN SL TABS 0.4 MG TAB SUBLINGUAL PRN (09:18)
[2023-03-06] MEDS ORDERED: ATORVASTATIN 80 MG TAB PO STA (09:18)
[2023-03-06] MEDS ORDERED: ALPRAZolam 0.25 MG TAB PO PRN (09:18)
[2023-03-06] MEDS ORDERED: ASPIRIN 325 MG TAB PO STA (09:18)
[2023-03-06] MEDS: METOPROLOL TARTRATE 50 MG TAB PO SCH ×2 (09:20→20:49)
[2023-03-06] MEDS: ASPIRIN 81 MG PO SCH ×2 (09:20→20:49)
[2023-03-06] MEDS: CLOPIDOGREL 75 MG TAB PO SCH (09:20)
[2023-03-06] MEDS: HEPARIN SODIUM,PORCINE 5,000 UNIT/ML 1 ML VIAL SQ SCH (09:20)
[2023-03-06] MEDS: SODIUM CHLORIDE 0.9% 1,000 ML in EMPTY BAG 1 BAG IV SCH ×2 (09:37→22:53)
[2023-03-06] MEDS ORDERED: VERAPAMIL 2.5 MG/ML 2 ML AMP ONE (09:42)
[2023-03-06] MEDS ORDERED: LIDOCAINE 1% INJ 10MG/ML (20 ML MDV) ONE (09:42)
[2023-03-06 09:43] LABS: Glucose,Whole Blood 136 mg/dL (70-110)
[2023-03-06 09:45] LABS: Basophils # (A) 0.04 X 10*3/uL (0.00-0.10); Basophils % (A) 0.5 %; Eosinophils # (A) 0.27 X 10*3/uL (0.04-0.35); Eosinophils % (A) 3.7 %; HCT 43.9 % (39.6-50.0); HGB 14.3 d/dL (13.0-17.0); Lymphocytes # (A) 2.42 X 10*3/uL (0.90-5.00); MCH 28.5 pg (27.0-32.0); MCHC 32.6 d/dL (32.0-37.0); MCV 87.6 FL (80.0-97.0); Mean Platelet Volume 10.1 FL (9.5-12.2); Monocytes # (A) 0.87 X 10*3/uL (0.20-1.00); Monocytes % (A) 11.9 %; NRBC Per 100 WBC 0 X 10*3/uL (0.00-0.01); Neutrophils # (A) 3.72 X 10*3/uL (1.80-7.70); Neutrophils % (A) 50.6 %; Platelet Count 223 X 10*3/uL (140-440); RBC 5.01 X 10*6/uL (4.40-5.60); RDW 12.9 % (11.5-14.5); WBC 7.34 X 10*3/uL (4.50-10.00)
[2023-03-06 09:49] LABS: BUN/Creat Ratio 16.55 Ratio (12.00-20.00); Blood Urea Nitrogen 18.2 mg/dL (9.0-27.0); Calcium 8.4 mg/dL (8.7-10.3); Carbon Dioxide 27.7 mmol/L (21.6-31.8); Chloride 105 mmol/L (96-109); Glucose 75 mg/dL (70-110); Potassium 4.2 mmol/L (3.5-5.5); Sodium 141 mmol/L (135-145)
[2023-03-06] MEDS ORDERED: HEPARIN SODIUM 1,000 UN/ML (10ML VL) ONE (09:55)
[2023-03-06] MEDS ORDERED: IV FLUID CONTINUATION 1,000 ML IV ONE (10:06)
[2023-03-06] MEDS: MIDAZOLAM 2 MG/2 ML VIAL IVP ONE ×2 (10:09→10:16)
[2023-03-06] MEDS ORDERED: LIDOCAINE 1% INJ 10MG/ML (20 ML MDV) SQ ONE (10:15)
[2023-03-06] MEDS ORDERED: VERAPAMIL SYRINGE (5 MG/10 ML) INTRAARTER ONE (10:18)
[2023-03-06] MEDS: HEPARIN SODIUM 1,000 UN/ML (10ML VL) IV ONE ×2 (10:19→10:29)
[2023-03-06] MEDS ORDERED: IOPAMIDOL-370 100ML BTL INJ ONE ×2 (10:59→11:24)
[2023-03-06] MEDS ORDERED: NITROGLYCERIN 1000MCG/10ML SYRINGE INTRACORON ONE (11:04)
[2023-03-06] MEDS ORDERED: CLOPIDOGREL 75 MG TAB ONE (11:21)
[2023-03-06] MEDS ORDERED: CLOPIDOGREL 75 MG TAB PO ONE (11:24)
[2023-03-06] MEDS ORDERED: ATROPINE SULFATE 0.1 MG/ML 10ML SYRINGE IV PRN (11:29)
[2023-03-06] MEDS ORDERED: RX INFO: IV CONTRAST WAS GIVEN 1 EACH MISC MISCELLANE PRN (11:29)
[2023-03-06] MEDS ORDERED: ZOLPIDEM 5 MG TAB PO PRN (11:29)
[2023-03-06] MEDS ORDERED: MAG HYDROX/AL HYDROX/SIMETH 30 ML CUP PO PRN (11:29)
[2023-03-06] MEDS ORDERED: HYDROmorphone 1 MG/ML 1 ML SYRINGE ONE (11:49)
[2023-03-06] MEDS ORDERED: HYDROmorphone 0.5 MG/0.5 ML SYRINGE SQ ONE (11:54)
[2023-03-06] MEDS ORDERED: SODIUM CHLORIDE 0.9% 1,000 ML IV ONE (12:20)
[2023-03-06 15:43] LABS: Partial Thromboplastin Time 22.7 sec (22.0-30.0); Prothrombin Time 10.6 sec (9.0-12.0)
[2023-03-06 16:15] VITALS: BMI 27.9
--- NOTE | 2023-03-06 20:36 | P.HPIM ---
History of Present Illness H&P Date: 03/06/23 Chief Complaint: Chest pain This is a pleasant 57-year-old patient, follows with Dr. Cabrera. Chronic stable medical conditions include GERD, hypertension, hyperlipidemia. Prior CAD with stent in 2018. For 2 days patient been having sore throat. Just like his prior coronary event. History is moving boxes at work that pain started increasing. Became short of breath. Started feeling off. Tired. Decided to come into the hospital. Patient was taken to the cardiac laborer driver by Dr. JONNA Franco from cardiology. Stent was placed in LAD. Postprocedure as patient is having some chest discomfort in the recovery room. Further evaluated by Dr. JONNA Franco. Patient's at the bedside. Review of systems: GEN.: Tired EYES: None HEENT: None NECK: None RESPIRATORY: None CARDIOVASCULAR: As above GASTROINTESTINAL: None GENITOURINARY: None MUSCULOSKELETAL: None LYMPHATICS: None HEMATOLOGICAL: None PSYCHIATRY: None NEUROLOGICAL: None Past medical history to include: GERD, hyperlipidemia, hypertension, CAD with stent 2018 Social history: Nonsmoker. . Alcohol occasionally. Patient and do [employer] business. Physical examination: VITAL SIGNS: 97.8, 74, 16, 123/81, 99% room air GENERAL: BMI 28, reclining but awake comfortable. EYES: Pupils equal. Conjunctiva normal. HEENT: External appearance of nose and ears normal, oral cavity grossly normal. NECK: JVD not raised; masses not palpable. HEART: First and second heart sounds are normal; no edema. LUNGS: Respiratory rate normal; clear to auscultation. ABDOMEN: Soft, nontender, liver spleen not palpable, no masses palpable. PSYCH: Alert and oriented x3; mood and affect normal. MUSCULOSKELETAL:No Clubbing/cyanosis;muscles-grossly intact NEUROLOGICAL: Cranial nerves grossly intact; no facial asymmetry, power and sensation grossly intact. LYMPHATICS: No lymph nodes palpable in the axilla and neck INVESTIGATIONS, reviewed in the clinical context: White count 7.3 hemoglobin 14.3 platelets 223 sodium 141 potassium 4.2 creatinine 1.1 Troponin I less than 0.012 EKG tracing personally reviewed by me-normal sinus rhythm. Nonspecific ST/T- wave changes. Chest x-ray film personally reviewed by me-unremarkable Assessment and plan: -Unstable angina in a patient with known coronary artery disease and stent. Patient started on IV heparin this morning. -Coronary artery disease with prior stent in 2017. Today patient got a stent to the LAD Aspirin. Plavix. Lopressor. Lipitor. -Hyperlipidemia Lipitor -Essential hypertension Lopressor 50 mg twice a day. Care was discussed with patient and at the bedside. Questions answered. Follow with cardiology. Past Medical History Past Medical History: GERD/Reflux, Hyperlipidemia, Hypertension, Myocardial Infarction ([place]) Last Myocardial Infarction Date:: October 2015 History of Any Multi-Drug Resistant Organisms: None Reported Past Surgical History: Heart Catheterization With Stent, Hernia Repair, Orthopedic Surgery Additional Past Surgical History / Comment(s): ORIF LEFT MID FINGER. MANDIBULAR RECONSTRUCTION. heart cath with stent in october of 2017 Past Anesthesia/Blood Transfusion Reactions: No Reported Reaction Date of Last Stent Placement:: December 2022 Past Psychological History: No Psychological Hx Reported Smoking Status: Never smoker Past Alcohol Use History: Occasional Past Drug Use History: Marijuana - Past Family History Father Family Medical History: Coronary Artery Disease (CAD), Myocardial Infarction ([place]) Medications and Allergies Home Medications Medication Instructions Recorded Confirmed Type Atorvastatin [Lipitor] 80 mg PO HS #30 tab 10/23/17 03/05/23 Rx Metoprolol Tartrate [Lopressor] 50 mg PO BID 12/28/22 03/05/23 History Clopidogrel [Plavix] 75 mg PO DAILY #90 tab 12/30/22 03/05/23 Rx Aspirin 81 mg PO BID 03/05/23 03/05/23 History Allergies Allergy/AdvReac Type Severity Reaction Status Date / Time No Known Allergies Allergy Verified 03/05/23 19:53 Physical Exam Vitals: Vital Signs Temp Pulse Pulse Resp BP BP Pulse Ox 03/06/23 07:00 97.8 F 74 16 123/81 99 03/06/23 02:06 98.7 F 66 14 110/72 98 03/05/23 21:41 97.6 F 64 15 132/82 98 03/05/23 21:00 73 15 136/91 97 03/05/23 20:00 70 16 135/97 98 03/05/23 19:00 73 16 136/102 97 03/05/23 18:52 72 16 102/82 97 03/05/23 18:07 98 F 78 16 145/104 98 Intake and Output 03/05/23 03/06/23 03/06/23 22:59 06:59 14:59 Other: # Voids 1 # Bowel Movements 0 Weight 88.451 kg Results CBC & Chem 7: 03/06/23 05:38 03/06/23 05:38 Labs: Abnormal Lab Results - Last 24 Hours (Table) 03/05/23 03/06/23 03/06/23 Range/Units 18:09 05:38 09:41 POC Glucose (mg/dL) 136 H (70-110) mg/dL Calcium 8.4 L (8.7-10.3) mg/dL ALT 54 H (4-49) U/L Thrombosis Risk Factor Assmnt - Choose All That Apply Any of the Below Risk Factors Present?: Yes Each Factor Represents 1 point: Age 41-60 years, Obesity (BMI >25) Other Risk Factors: No Other congenital or acquired thrombophilia - If yes, enter type in comment: No Thrombosis Risk Factor Assessment Total Risk Factor Score: 2 Thrombosis Risk Factor Assessment Level: Low Risk
[2023-03-06] MEDS: ATORVASTATIN 80 MG TAB PO SCH (20:49)
--- NOTE | 2023-03-06 22:17 | CC ---
CARDIAC CATHETERIZATION REPORT PROCEDURES PERFORMED: 1. Left heart catheterization and coronary angiography. 2. Percutaneous transluminal coronary angioplasty and stenting of proximal LAD with a drug-eluting stent. 3. Intravascular ultrasound of left anterior descending coronary artery. PERFORMED BY: Dr. Yesica Franco. ANESTHESIA: Moderate conscious sedation time was 67 minutes. The patient was administered Versed. Oxygen saturation, hemodynamics and EKG were monitored closely. CLINICAL INFORMATION: Mr. Burt Dee is a 57-year-old gentleman who has a known history of CAD and hyperlipidemia. In 2018, he had an inferior [place] with total occlusion of circumflex that was stented. He was recently in with unstable angina in December of this year where he had stenting of the circumflex vessel and also went on to have stenting of the major diagonal branch with a 2.5 caliber stent and a 3.25 caliber stent was used for the circumflex. He went home, felt well until a couple of days ago when he began having symptoms strongly suggestive of angina and therefore he was advised cardiac catheterization after due discussion. Dr. Law who performed his initial procedure was not available. PROCEDURE NOTE: Under local and strict aseptic precautions, a 6-Khmer introducer was placed in the right radial artery. Using a JL3.5 and JR4 catheters, I performed coronary angiography and the same catheter was used to check LV pressure, but LV-gram was not performed. I noted that there was a significant lesion in the proximal LAD before the origin of the diagonal branch and proceeded to perform intervention in the same setting. The diagonal stent itself as well as the circumflex itself was widely patent. RCA was dominant with minor diffuse distal disease in the branches. The filling pressures were normal. FINAL IMPRESSION: This patient has a right-dominant system, mildly elevated left ventricular end- diastolic pressure of 15 mmHg. Diffuse disease in the distal RCA and branches of RCA but no significant stenosis. Left main, there is widely patent circumflex stent, it is widely patent with good flow. Proximal LAD has a new lesion 95% calcified. The diagonal stent is patent. Rest of LAD has minor irregularities. RECOMMENDATIONS: I recommended PCI of the LAD and proceeded to perform this in the same setting. PCI PROCEDURE: I used a JL3.5 guide catheter and a Run-through wire. The lesion was crossed. Wire was kept distally. I could not advance a 3.0 NC Trek balloon. I eventually started with a 1.5 caliber NC Trek balloon and with this I was able to dilate the lesion. I went with a 2.0 NC Trek balloon followed by 3.2 NC Trek balloon. I then deployed a 3.5 caliber 15 mm long Xience stent. I performed intravascular ultrasound. I noted that the stent was well apposed, but the maximal diameter was 3.1 and the reference diameter was 3.3. I therefore went with a 4.0 balloon and gave an additional inflation. The patient tolerated the procedure well. He had throat discomfort but no EKG changes. Excellent angiographic result was achieved. There was sluggish flow in the diagonal. I therefore advanced the wire into the diagonal and went with a 2.0 balloon and at the ostium of the diagonal, I gave 1 inflation that improved the flow, but still there was sluggish flow at the end. The patient tolerated the procedure well without complication. ACT was 292. He received additional 300 mg of Plavix. He will be on aspirin and Plavix combination without interruption for 1 year. Excellent angiographic result was achieved without complication. The details were discussed with the patient and . I expect he will be discharged in the next 48 hours. MMODL / IJN: [id number] /
--- NOTE | 2023-03-06 23:31 | CONS ---
CONSULTATION HISTORY OF PRESENT ILLNESS: This is a 57-year-old gentleman with a known history of CAD and hyperlipidemia. He is not active smoker. In 2018, he had an acute inferior [place] with total occlusion of circumflex and had stenting of that vessel. As recently in December because of angina, he had a cardiac cath, which revealed a significant lesion in a major diagonal branch as well as circumflex just adjacent to the previous stent. He underwent stenting of both the vessels by Dr. Law. He comes in with complaints of chest tightness, pressure, and also throat discomfort, which is characteristic for his angina with mild effort. Symptoms were strongly suggestive angina. EKG is unremarkable. Enzymes are normal. He is resting comfortably without symptoms. PAST MEDICAL HISTORY: 1. Hypertension. 2. Hyperlipidemia. 3. History of an acute inferior [place] and PCI of circumflex in 2018 followed by PCI of diagonal and same vessel that was performed in December of this year. MEDICATIONS: Medications at home include; 1. Metoprolol tartrate 50 mg b.i.d. 2. Plavix 75 mg daily. 3. Aspirin 81 mg daily. 4. Atorvastatin 80 mg daily. ALLERGIES: None. PHYSICAL EXAMINATION: VITAL SIGNS: Blood pressure is 130/70, pulse rate is 72. HEENT: Unremarkable. Fundus was not examined by me. NECK: Supple. No JVD. I do not hear a carotid bruit. There is no thyromegaly. HEART: Reveals S1, S2 heard normally. No rub, murmur or gallop. LUNGS: Clear. ABDOMEN: Soft, nontender. EXTREMITIES: Lower extremities reveal normal pulses. No edema. CENTRAL NERVOUS SYSTEM: Normal. IMAGING STUDIES: EKG revealed normal sinus rhythm without any acute changes minor nonspecific ST abnormality noted in the lateral leads. IMPRESSION: 1. Unstable angina. 2. Hyperlipidemia. 3. Recent PCI of diagonal and circumflex performed in 2022 and prior inferior myocardial infarction with stenting of circumflex in 2018. RECOMMENDATIONS: I am recommending intravenous heparin and proceed with cardiac cath and PCI today. Risks, benefits, options, rationale explained. The patient understands all details and wishes to proceed with the procedure. MMODL / IJN: [id number] /
[2023-03-07] MEDS ORDERED: HEPARIN SODIUM,PORCINE 10,000 UNIT in SODIUM CHLORIDE 0.9% 1,000 ML IRRIGATION PRN (07:00)
[2023-03-07] MEDS ORDERED: HEPARIN SODIUM,PORCINE (1 ML) 2,500 UNIT in SODIUM CHLORIDE 0.9% 250 ML IRRIGATION PRN (07:00)
[2023-03-07] MEDS: CLOPIDOGREL 75 MG TAB PO SCH (08:41)
[2023-03-07] MEDS: ASPIRIN 81 MG PO SCH (08:41)
[2023-03-07] MEDS: METOPROLOL TARTRATE 50 MG TAB PO SCH (08:41)
[2023-03-07 09:18] VITALS: RESP 18
[2023-03-07 09:54] LABS: Basophils % (A) 0 %; Eosinophils # (A) 0.2 k/uL (0-0.7); Eosinophils % (A) 3 %; HCT 41.3 % (39.0-53.0); HGB 13.9 gm/dL (13.0-17.5); Lymphocytes # (A) 1.2 k/uL (1.0-4.8); Lymphocytes % (A) 12 %; MCH 29.4 pg (25.0-35.0); MCHC 33.5 g/dL (31.0-37.0); MCV 87.7 fL (80.0-100.0); Mean Platelet Volume 8.1; Monocytes # (A) 0.5 k/uL (0-1.0); Monocytes % (A) 6 %; Neutrophils # (A) 7.2 k/uL (1.3-7.7); Neutrophils % (A) 78 %; Platelet Count 203 k/uL (150-450); RBC 4.71 m/uL (4.30-5.90); RDW 13.3 % (11.5-15.5); WBC 9.3 k/uL (3.8-10.6)
[2023-03-07 10:02] LABS: Prothrombin Time 10.8 sec (9.0-12.0)
--- NOTE | 2023-03-07 12:11 | CA ---
Transthoracic Echo Report Name: Burt Dee Age: 57 Gender: M : 1965 Exam Date: 03/06/2023 07:57 Exam Location: [facility] Ht (in): 70 Wt (lb): 195 Ordering Physician: Eliazar Deng MD Attending/Referring Phys: Super[employer] Procedure CPT: Indications: Chest Pain Cardiac Hx: Technical Quality: Fair Contrast 1: Total Dose (mL): Contrast 2: Total Dose (mL): MEASUREMENTS (Male / Female) Normal Values 2D ECHO LV Diastolic Diameter PLAX 4.2 cm 4.2 - 5.9 / 3.9 - 5.3 cm LV Systolic Diameter PLAX 3.0 cm IVS Diastolic Thickness 1.3 cm 0.6 - 1.0 / 0.6 - 0.9 cm LVPW Diastolic Thickness 1.1 cm 0.6 - 1.0 / 0.6 - 0.9 cm LV Relative Wall Thickness 0.6 RV Internal Dim ED PLAX 3.2 cm LVOT Diameter 2.1 cm Aortic Root Diameter 3.4 cm LA Systolic Diameter LX 2.7 cm 3.0 - 4.0 / 2.7 - 3.8 cm LV Diastolic Volume MOD BP 58.0 cm??? 67 - 155 / 56 - 104 cm??? LV Systolic Volume MOD BP 22.9 cm??? 22 - 58 / 19 - 49 cm??? LV Ejection Fraction MOD BP 60.6 % >= 55 % LV Cardiac Index MOD BP 1134.7 cm???/min???m??? LV Diastolic Volume MOD 4C 64.3 cm??? LV Systolic Volume MOD 4C 24.9 cm??? LV Ejection Fraction MOD 4C 61.2 % LV Cardiac Index MOD 4C 1270.0 cm???/min???m??? LV Diastolic Length 4C 7.6 cm LV Systolic Length 4C 6.5 cm LV Diastolic Volume MOD 2C 50.9 cm??? LV Systolic Volume MOD 2C 21.8 cm??? LV Ejection Fraction MOD 2C 57.2 % LV Cardiac Index MOD 2C 940.0 cm???/min???m??? LV Diastolic Length 2C 7.3 cm LV Systolic Length 2C 6.5 cm LA Volume 32.8 cm??? 18 - 58 / 22 - 52 cm??? Ascending Aorta Diameter 2.9 cm DOPPLER AV Peak Velocity 109.5 cm/s AV Peak Gradient 4.8 mmHg LVOT Peak Velocity 94.3 cm/s LVOT Peak Gradient 3.6 mmHg LVOT Velocity Time Integral 20.2 cm LVOT Stroke Volume 68.1 cm??? LVOT Stroke Volume Index 33.0 ml/m??? LVOT Cardiac Index 2196.9 cm???/min???m??? AV Area Cont Eq pk 2.9 cm??? MV Peak Velocity 72.9 cm/s MV Peak Gradient 2.1 mmHg MV Mean Velocity 38.8 cm/s MV Mean Gradient 0.8 mmHg MV Velocity Time Integral 24.8 cm MR Peak Velocity 233.5 cm/s MR Peak Gradient 21.8 mmHg Mitral E Point Velocity 65.4 cm/s Mitral A Point Velocity 60.5 cm/s Mitral E to A Ratio 1.1 MV Deceleration Time 262.8 ms TR Peak Velocity 124.9 cm/s TR Peak Gradient 6.2 mmHg PV Peak Velocity 68.9 cm/s PV Peak Gradient 1.9 mmHg FINDINGS Left Ventricle Normal LV size and wall thickness. Left ventricular ejection fraction is estimated at 50-55 %. Right Ventricle Normal right ventricular size. Right Atrium Normal right atrial size. Left Atrium Normal left atrial size. Mitral Valve Structurally normal mitral valve. Mild MR. Aortic Valve Trileaflet aortic valve. No aortic valve stenosis or regurgitation. Tricuspid Valve Structurally normal tricuspid valve. Trace TR. Pulmonic Valve Pulmonic valve not well visualized. Mild PI. Pericardium Normal pericardium. Aorta Normal size aortic root and proximal ascending aorta. CONCLUSIONS Normal LV size and systolic function Previewed by: Dr. Carl Torres MD (Electronically Signed) Final Date: 07 March 2023 12:10
--- NOTE | 2023-03-07 12:43 | P.PN ---
Subjective Progress Note Date: 03/07/23 The patient is a 57-year-old male who presented to the emergency room with chest pain. Initial EKG showed nonspecific ST and T-wave abnormality, however his symptoms were concerning for angina. He underwent coronary angiogram where he was found to have a proximal LAD lesion and 95%. Successful stenting was performed. Echocardiogram shows LV function of 50-55%. The patient was interviewed and examined resting comfortably up in the recliner chair. He states he has remained symptom free since his stent was placed yesterday. No difficulty breathing. GENERAL: Well-appearing, well-nourished and in no acute distress. NECK: Supple without JVD or thyromegaly. LUNGS: Breath sounds clear to auscultation bilaterally. Respiration equal and unlabored. No wheezes, rales or rhonchi. HEART: Regular rate and rhythm without murmurs, rubs or gallops. S1 and S2 heard. EXTREMITIES: Normal range of motion, no edema. No clubbing or cyanosis. Peripheral pulses intact and strong. Right radial site has +2 pulses TELEMETRY: Sinus rhythm overnight IMPRESSION: Unstable angina Multivessel coronary artery disease Status post stenting of the mid LAD with Dr. 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 Lwa I am dictating on behalf of Dr Carl Torres's history/physical and assessment/plan. Objective - Vital Signs Vital signs: Vital Signs Temp 98.0 F 03/07/23 08:00 Pulse 88 03/07/23 08:00 Resp 18 03/07/23 08:00 BP 112/71 03/07/23 08:00 Pulse Ox 96 03/07/23 08:00 FiO2 Intake & Output 03/06/23 03/07/23 03/07/23 18:59 06:59 18:59 Intake Total 740 50 180 Output Total 350 200 Balance 390 -150 180 Weight 88.451 kg Intake: IV 500 Oral 240 50 180 Output: Urine 350 200 Other: # Voids 1 - Labs CBC & Chem 7: 03/07/23 08:21 03/06/23 05:38
[2023-03-07 13:06] VITALS: BP 108/67; PULSE 74; TEMP 98.4
--- NOTE | 2023-03-07 20:05 | P.DS ---
Providers Date of admission: 03/05/23 19:37 Expected date of discharge: 03/07/23 Attending physician: Nolberto Chavis Consults: 03/05/23 19:36 Consult Physician Routine Consulting Provider: Cherrie Herrera Consult Reason/Comments: chest pain Do you want consulting provider notified?: Yes 03/06/23 11:29 Consult Physician Routine Consulting Provider: Cardiology Sharon Consult Reason/Comments: Post Interventional Patient Do you want consulting provider notified?: Already Contacted Primary care physician: [facility] Course: Chief Complaint: Chest pain This is a pleasant 57-year-old patient, follows with Dr. Cabrera. Chronic stable medical conditions include GERD, hypertension, hyperlipidemia. Prior CAD with stent in 2018. For 2 days patient been having sore throat. Just like his prior coronary event. History is moving boxes at work that pain started increasing. Became short of breath. Started feeling off. Tired. Decided to come into the hospital. Patient was taken to the cardiac culture media laboratory assistant by Dr. JONNA Franco from cardiology. Stent was placed in LAD. Postprocedure as patient is having some chest discomfort in the recovery room. Further evaluated by Dr. JONNA Franco. Patient's at the bedside. March 07: Patient doing well. No chest pain or short of breath. Did ambulate in the hallway. Cleared by: Cardiology/Dr. Torres. Questions answered. 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 Past medical history to include: GERD, hyperlipidemia, hypertension, CAD with stent 2017 Social history: Nonsmoker. . Alcohol occasionally. 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 Physical examination: VITAL SIGNS: 98.4, 74, 18, 108/67, 97% room air GENERAL: Up in a chair, comfortable EYES: Pupils equal. Conjunctiva normal. HEENT: External appearance of nose and ears normal, oral cavity grossly normal. NECK: JVD not raised; masses not palpable. HEART: First and second heart sounds are normal; no edema. LUNGS: Respiratory rate normal; clear to auscultation. ABDOMEN: Soft, nontender, liver spleen not palpable, no masses palpable. PSYCH: Alert and oriented x3; mood and affect normal. INVESTIGATIONS, reviewed in the clinical context: March 07: White count 9.3 hemoglobin 13.9 platelets 203 White count 7.3 hemoglobin 14.3 platelets 223 sodium 141 potassium 4.2 creatinine 1.1 Troponin I less than 0.012 EKG tracing personally reviewed by me-normal sinus rhythm. Nonspecific ST/T- wave changes. Chest x-ray film personally reviewed by me-unremarkable Assessment and plan: -Unstable angina in a patient with known coronary artery disease and stent. Patient started on IV heparin this morning. -Coronary artery disease with prior stent in 2018. Today patient got a stent to the LAD Aspirin. Plavix. Lopressor. Lipitor. -Hyperlipidemia Lipitor -Essential hypertension Lopressor 50 mg twice a day. Disposition: Home Past Medical History Past Medical History: GERD/Reflux, Hyperlipidemia, Hypertension, Myocardial Infarction (NM) Last Myocardial Infarction Date:: October 2015 History of Any Multi-Drug Resistant Organisms: None Reported Past Surgical History: Heart Catheterization With Stent, Hernia Repair, Orthopedic Surgery Additional Past Surgical History / Comment(s): ORIF LEFT MID FINGER. MANDIBULAR RECONSTRUCTION. heart cath with stent in october of 2017 Past Anesthesia/Blood Transfusion Reactions: No Reported Reaction Date of Last Stent Placement:: December 2022 Past Psychological History: No Psychological Hx Reported Smoking Status: Never smoker Past Alcohol Use History: Occasional Past Drug Use History: Marijuana - Past Family History Father Family Medical History: Coronary Artery Disease (CAD), Myocardial Infarction (NM) Plan - Discharge Summary Discharge Rx Participant: Yes New Discharge Prescriptions: New Nitroglycerin Sl Tabs [Nitrostat] 0.4 mg SUBLINGUAL Q5M PRN #30 tab PRN Reason: Chest Pain Continue Atorvastatin [Lipitor] 80 mg PO HS #30 tab Aspirin 81 mg PO BID Metoprolol Tartrate [Lopressor] 50 mg PO BID Clopidogrel [Plavix] 75 mg PO DAILY #90 tab Discharge Medication List Atorvastatin [Lipitor] 80 mg PO HS #30 tab 10/23/17 [Rx] Metoprolol Tartrate [Lopressor] 50 mg PO BID 12/28/22 [History] Clopidogrel [Plavix] 75 mg PO DAILY #90 tab 12/30/22 [Rx] Aspirin 81 mg PO BID 03/05/23 [History] Nitroglycerin Sl Tabs [Nitrostat] 0.4 mg SUBLINGUAL Q5M PRN #30 tab 03/07/23 [Rx] Follow up Appointment(s)/Referral(s): Tina Law MD [STAFF PHYSICIAN] - 1 Week (please call to set up appointment) Davis Cabrera DO [Primary Care Provider] - 1-2 days (please call to set up appointment ) Patient Instructions/Handouts: *Surgery [facility] - After Heart Catheterization - Assessment Analyst Instructions, Heart Catheterization (DC) Discharge Disposition: HOME SELF-CARE
[2023-03-08 07:22] LABS: Chol/HDL Ratio 3.52 Ratio
== END 2023-03-07 14:51 | disposition home or self-care (01) | DRG 247 ==
LOC: EC 18:04 → UNDOADMOB 19:37 → OBSVTOIN 19:37 → 6NMEDSUR 19:37 → INTOOBSV 19:37 → 6NMEDSUR 21:11 → 3SCARD 03-06 11:59 → 6NMEDSUR 03-06 11:59 → OBSVTOIN 03-06 11:59 → 3SCARD 03-06 13:26 → 6NMEDSUR 03-06 13:26 → UNDODISIN 03-07 14:51 → UNDODISOB 03-07 14:51
PROVIDERS: ADMIT Hospitalist; ATTEND Hospitalist
PROC: 4A023N7 Measurement of Cardiac Sampling and Pressure, Left Heart, Percutaneous Approach (ICD-10-PCS; principal; 2023-03-06 10:00)
PROC: B240ZZ3 Ultrasonography of Single Coronary Artery, Intravascular (ICD-10-PCS; principal; 2023-03-06 10:00)
PROC: B2111ZZ Fluoroscopy of Multiple Coronary Arteries using Low Osmolar Contrast (ICD-10-PCS; principal; 2023-03-06 10:00)
PROC: 027034Z Dilation of Coronary Artery, One Artery with Drug-eluting Intraluminal Device, Percutaneous Approach (ICD-10-PCS; principal; 2023-03-06 10:00)
DX: I25.110 Atherosclerotic heart disease of native coronary artery with unstable angina pectoris (principal); N17.9 Acute kidney failure, unspecified; Z95.5 Presence of coronary angioplasty implant and graft; E78.49 Other hyperlipidemia; I10 Essential (primary) hypertension; I25.2 Old myocardial infarction; I25.82 Chronic total occlusion of coronary artery; K21.9 Gastro-esophageal reflux disease without esophagitis; K22.4 Dyskinesia of esophagus; K81.9 Cholecystitis, unspecified; Z59.6 Low income; Z79.02 Long term (current) use of antithrombotics/antiplatelets; Z79.82 Long term (current) use of aspirin; Z82.49 Family history of ischemic heart disease and other diseases of the circulatory system; Z79.899 Other long term (current) drug therapy; Z28.21 Immunization not carried out because of patient refusal; Z79.85 Long-term (current) use of injectable non-insulin antidiabetic drugs; Z79.2 Long term (current) use of antibiotics; Z71.3 Dietary counseling and surveillance; Y99.0 Civilian activity done for income or pay
CPT/HCPCS: 36415; 71046; 80048; 80053; 80061; 83735; 84484; 85025; 85610; 85730; 87636; 92978; 93005; 93306; 93458; 99285